=== PATIENT | female | born 2000 | race Caucasian/White ===

== ENCOUNTER 2025-02-05 19:04 | Emergency (ER) | payer OTHER ==
--- OUTSIDE RECORDS SUMMARY | 2025-02-05 19:10 | XMS REPORT | Continuity of Care Document ---
Author Name Unknown Address [address] [facility] [place] [address] [facility] [place] Address [address] [facility] [place] [address] Care Team Providers Care Engagement Manager Name Role Phone Pcp, Patient Does Not Have A Primary Care Physic gordo Doctor Unassigned, [place] Attending Clinician U navailTRELL Plasencia Attending Clinician Unavailable TRELL HAGEN Attending Clinician Unavailable , [facility] Attending Clinician Unavailable Trell Hagen MD Attending Clinician [phone] FERMÍN VELEZ Attending Clinician Unavailable Fermín Velez DNP Attending Clinician [phone] DEISY ALBERT Attending Clinician Unavailable DEISY ALBERT Attending Clinician Unavailable Deisy Albert MD Attending Clinician [phone] RAFAEL FUENTES Attending Clinician UnavailRafael Roman NP Attending Clinician [phone] Jasmyn LIU, Pastora Hollis Attending Clinician Unavaila Andres Chester CRNA Attending Clinician [phone] Yamil Solis MD Attending Clinician [phone] Elizabeth Marrero MD Attending Clinician [phone] Room, [facility] Attending Clinician Unavailable MANASA CARUSO Attending Clinician MANASA Fuller Attending Clinician Ana muñoz 1, [facility] Room Attending Clinician Manasa Paz MD Attending Clinician [phone] CONSUELO BARAHONA Attending Clinician UnavailCONSUELO Guido Attending Clinician UnavailConsuelo Guido DO Attending Clinician [phone] Carissa Daiz DO Attending Clinician [phone] RAFAEL FUENTES Admitting Clinician [place], TRELL CONRAD Admitting Clinician Trell Pisano MD Admitting Clinician [phone] Payers Payer Name Policy Type Policy Number Effective Date Expirati on Date Source [employer] [place] [id number] 2023 00:00:00 Problems Condition Name Condition Details Condition Category Status Onset Date Resolution Date Last Treatment Date Treating Clinician Comments Source Mild pre-eclamp tori in third trimester Mild pre-eclamp tori in third trimester Disease Active 07-03 00:00: 00 [facility] History of pre-eclamp tori History of pre-eclamp tori Disease Active 07-03 00:00: 00 [facility] Gestationa l diabetes mellitus (GDM) in third trimester, gestationa l diabetes method of control unspecifie d Gestationa l diabetes mellitus (GDM) in third trimester, gestationa l diabetes method of control unspecifie d Disease Active 8-14 00:00: 00 [facility] GDM, class A2 GDM, class A2 Disease Active 8-14 00:00: 00 [facility] History of gestationa l diabetes mellitus (GDM) History of gestationa l diabetes mellitus (GDM) Disease Active 8-14 00:00: 00 [facility] Post-op pain Post-op pain Disease Resolve d 2023- 9-04 00:00: 00 2024-07-29 00:00:00 2024-07-29 12:20:31 [facility] Generalize d abdominal pain Generalize d abdominal pain Disease Resolve d 2023-0 9-04 00:00: 00 2024-07-29 00:00:00 2024-07-29 12:20:32 [facility] Hypokalemi a Hypokalemi a Disease Resolve d 2023-0 9-04 00:00: 00 2024-07-29 00:00:00 2024-07-29 12:20:33 [facility] Acute UTI (urinary tract infection) Acute UTI (urinary tract infection) Disease Resolve d 0 9-04 00:00: 00 2024-07-29 00:00:00 2024-07-29 12:32:07 [facility] Other constipati on Other constipati on Disease Resolve d 0 9-04 00:00: 00 2024-07-29 00:00:00 2024-07-29 12:20:34 [facility] Endometrit is Endometrit is Disease Resolve d 9-03 00:00: 00 2024-07-29 00:00:00 2024-07-29 12:32:06 [facility] Liveborn , of colon , born in hospital by delivery Liveborn , of colon , born in hospital by delivery Disease Resolve d 0 9-01 00:00: 00 2024-07-29 00:00:00 2024-07-29 12:20:28 [facility] Positive GBS test Positive GBS test Disease Resolve d 0 8-21 00:00: 00 2024-07-29 00:00:00 2024-07-29 12:20:36 [facility] 39 weeks gestation of 39 weeks gestation of Disease Resolve d 2023-0 7-30 00:00: 00 2024-07-29 00:00:00 2024-07-29 12:20:40 [facility] High-risk in third trimester High-risk in third trimester Disease Resolve d 2023-0 7-30 00:00: 00 2024-07-29 00:00:00 2024-07-29 12:20:38 [facility] Obesity in Obesity in Disease Resolve d 0 7-30 00:00: 00 2024-07-29 00:00:00 2024-07-29 12:20:37 [facility] 34 weeks gestation of 34 weeks gestation of Disease Resolve d 730 00:00: 00 2024-05-31 00:00:00 2024-05-31 15:19:20 [facility] Allergies, Adverse Reactions, Alerts Allergy Name Allergy Type Status Severity Reaction(s) Onset Date Inactive Date Treating Clinician Comments Source NO KNOWN ALLERGIE S Drug Class Active [facility] Social History Social Habit Start Date Stop Date Quantity Comments Source ASSERTION 2023-10-15 00:00:00 [facility] Social function 2024-07-15 00:00:00 2024-07-15 00:00:00 [facility] Alcoholic beverage intake 2024-06-15 00:00:00 2024-06-15 00:00:00 Ex-drinker (finding) [facility] Tobacco use and exposure 2024-05-31 00:00:00 2024-05-31 00:00:00 Smokeless tobacco non-user [facility] Sex assigned at 2000 00:00:00 2000 00:00:00 [facility] Smoking Status Start Date Stop Date Source Tobacco smoking consumption unknown [facility] Never smoked tobacco [facility] Medications Ordered Medication Name Filled Medication Name Start Date Stop Date Current Medication? Ordering Clinician Indication Dosage Frequency Signature (SIG) Comments Components Source cefTRIAXone (ROCEPHIN) 1,000 mg in NaCl 0.9% (NS) 100 mL MINI-BAG 07-06 06:45: 00 07-06 07:33 :00 No 1000mg 1,000 mg, IV Piggyback, ONCE, 1 dose, On Thu07/06/24 at 0145, Administer over 30 Minutes, 100 mL, Reason for Anti-Infec tive: Documented Infection, Documented Infection Site: Urine, Duration of Therapy: Once (ED) [facility] NaCl 0.9% (NS) bolus infusion 1,000 mL 07-06 06:45: 00 07-06 07:05 :00 No 1000mL at 999 mL/hr, 1,000 mL, IV Infusion, ONCE, 1 dose, On Thu07/06/24 at 0145, ROBBIE [facility] iopamidol (ISOVUE 370-500 mL) injection 100 mL 07-06 06:45: 00 07-06 06:45 :00 No [id number] 100mL 100 mL, Intravenou s, ONCE, 1 dose, On Thu07/06/24 at 0145, Routine [facility] KCL (KLOR-CON M20) tablet 40 mEq 07-06 06:00: 00 07-06 06:16 :00 No 40meq 40 mEq, Oral, ONCE, 1 dose, On Thu07/06/24 at 0100, ROBBIE [facility] cefdinir 300 mg capsule 07-06 00:00: 00 07-17 04:59 :00 No [id number] 300mg Take 1 capsule by mouth every 12 (twelve) hours for 10 days. [facility] polyethylen e glycol 3350 (MIRALAX) 17 gram/dose powder 07-06 00:00: 00 07-14 04:59 :00 No [id number] 17g Take 17 g by mouth in the morning for 7 days. [facility] ibuprofen (IBU) tablet 800 mg 07-04 05:00: 00 Yes 800mg 800 mg, Oral, Q8H ABX, First dose on Thu07/04/24 at 0000, Until Discontinu ed, Routine [facility] gentamicin 335.2 mg in NaCl 0.9% (NS) 100 mL IV infusion 07-04 02:00: 00 07-05 13:04 :19 No 335.2mg IV Infusion, Q24H ABX, First dose on Thu07/03/24 at 2100, Until Discontinu ed, Routine [facility] clindamycin in 5 % dextrose (CLEOCIN) 900 mg/50 mL IV piggyback RTU 900 mg 07-04 00:30: 00 07-05 13:04 :19 No 900mg 900 mg, IV Piggyback, Q8H ABX, 9 doses, First dose on Thu07/03/24 at 1930, Last dose on Thu07/06/24 at 1130, Administer over 30 Minutes, 50 mL, Reason for Anti-Infec tive: Empiric Therapy for Suspected Infection, Empiric Therapy Site: Pelvic, Duration of therapy: 72 hours, Restricted use approved by: [employer], juice bar 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 member approving Restricted medication : TRELL HAGEN [facility] ampicillin (POLYCILLIN -N) 2,000 mg in NaCl 0.9% (NS) 100 mL MINI-BAG 07-03 23:45: 00 07-05 13:04 :19 No 2g 2,000 mg (2 g), IV Piggyback, Q6H ABX, First dose on Thu07/03/24 at 1845, Until Discontinu ed, Administer over 30 Minutes, 100 mL, Reason for Anti-Infec tive: Empiric Therapy for Suspected Infection, Empiric Therapy Site: Pelvic, Duration of therapy: 72 hours [facility] docusate (COLACE) capsule 200 mg 07-03 14:00: 00 Yes 200mg 200 mg, Oral, DAILY, First dose on Thu07/03/24 at 0900, Until Discontinu ed, Routine [facility] ferrous sulfate tablet 325 mg 07-03 13:00: 00 Yes 325mg 325 mg, Oral, BID, First dose on Thu07/03/24 at 0800, Until Discontinu ed, Routine [facility] ketorolac (TORADOL) injection 30 mg 07-03 05:00: 00 07-03 23:10 :00 No 30mg 30 mg, Slow IV Push, Q6H ABX, 4 doses, First dose on Thu07/03/24 at 0000, Last dose on Thu07/03/24 at 1800, Routine [facility] acetaminoph en 500 mg tablet 07-03 00:00: 00 Yes [id number] 1000mg Take 2 tablets by mouth every 8 (eight) hours as needed for Pain. [facility] simethicone 80 mg chewable tablet 07-03 00:00: 00 Yes [id number] 160mg Take 2 tablets by mouth in the morning and 2 tablets at noon and 2 tablets in the evening. [facility] vitamin w/FA tablet 07-03 00:00: 00 Yes [id number] 1{tbl} Take 1 tablet by mouth in the morning. [facility] docusate 100 mg capsule 07-03 00:00: 00 Yes [id number] 200mg Take 2 capsules by mouth once daily as needed for Constipati on. [facility] ferrous sulfate 325 mg (65 mg iron) tablet 07-03 00:00: 00 Yes [id number] 325mg Take 1 tablet by mouth in the morning. [facility] ibuprofen 800 mg tablet 07-03 00:00: 00 Yes [id number] 800mg Take 1 tablet by mouth every 8 (eight) hours as needed (pain). Take with food or milk. [facility] oxyCODONE 5 mg immediate release tablet 07-03 00:00: 07-11 04:59 :00 No [id number] 5mg Take 1 tablet by mouth every 6 (six) hours as needed (pain) for up to 7 days. Indication s: acute pain [facility] gabapentin 300 mg capsule 07-03 00:00: 00 07-09 04:59 :00 No [id number] 300mg Take 1 capsule by mouth in the morning and 1 capsule at noon and 1 capsule in the evening. Do all this for 5 days. [facility] gabapentin (NEURONTIN) capsule 300 mg 07-02 19:00: 00 Yes 300mg 300 mg, Oral, TID, First dose on 07/02/24 at 1400, Until Discontinu ed, Routine [facility] simethicone (GAS RELIEF (SIMETHICON E)) chewable tablet 160 mg 07-02 19:00: 00 Yes 160mg 160 mg, Oral, TID, First dose on 07/02/24 at 1400, Until Discontinu ed, Routine [facility] acetaminoph en (TYLENOL) tablet 1,000 mg 07-02 16:30: 00 Yes 1000mg 1,000 mg, Oral, Q8H, First dose on 07/02/24 at 1130, Until Discontinu ed, Routine [facility] rho(D) immune globulin (RHOPHYLAC) injection 300 mcg 07-02 16:24: 14 Yes 300ug [facility] oxyCODONE immediate release tablet 5 mg 07-02 16:24: 10 Yes 5mg 5 mg, Oral, Q6HPRN, Starting on 07/02/24 at 1124, Until Discontinu ed, Routine, Pain (scale 7-10), juice bar team member approving Restricted medication : TRELL HAGEN [facility] diphenhydrA MINE (BENADRYL) injection 25 mg 07-02 16:24: 10 Yes 25mg [facility] diphenhydrA MINE (BENADRYL) tablet 25 mg 07-02 16:24: 10 Yes 25mg [facility] ondansetron (ZOFRAN (PF)) injection 4 mg 07-02 16:24: 10 Yes 4mg [facility] bisacodyL (DULCOLAX) suppository 10 mg 07-02 16:24: 10 Yes 10mg [facility] magnesium hydroxide (MILK OF MAGNESIA) 400 mg/5 mL suspension 30 mL 07-02 16:24: 10 Yes 30mL [facility] lactated ringers IV infusion 1,000 mL 07-02 16:24: 10 Yes 1000mL [facility] mupirocin (BACTROBAN OINT) 2 % oinintment 07-02 16:00: 00 Yes Intra-op [facility] sodium chloride 0.9 % irrigation solution 07-02 15:50: 00 Yes PRN, Starting on 07/02/24 at 1050, Until Discontinu ed, Intra-op [facility] lactated ringers IV infusion 1,000 mL 07-02 15:15: 00 07-02 16:25 :01 No 1000mL at 125 mL/hr, 1,000 mL, IV Infusion, CONTINUOUS , Starting on Thu07/02/24 at 1015, Until 07/02/24 at 1125, ROBBIE [facility] oxytocin (PITOCIN) 30 units in NS 500 mL IV infusion 07-02 15:06: 20 07-02 16:25 :01 No 300mL/h 300 mL/hr, IV Infusion, SEE-INSTRU CTIONS, Starting on Thu07/02/24 at 1006, Start at 300 mL/hr for 1 hr then 150 mL/hr for 1 hr. For post delivery uterotonic . [facility] lidocaine-e pinephrine (XYLOCAINE W/EPINEPHRI NE) 1.5 %-1:200,000 injection 07-02 03:16: 00 Yes Epidural, ONCE INTRA PROCEDURE, Starting on Thu07/01/24 at 2216, Until Discontinu ed, Routine, Intra-op [facility] penicillin GK 3 million units in NS 50 mL IV infusion (CNR) 07-01 21:00: 00 07-02 16:24 :27 No 310 3,000,000 Units (3 Million Units), IV Piggyback, Q4H ABX, First dose (after last reorder) on Thu07/01/24 at 1615, Until Discontinu ed, Administer over 60 Minutes, 50 mL, Reason for Anti-Infec tive: Documented Infection, Documented Infection Site: Pelvic, Duration of Therapy: Other (see Comments) [facility] famotidine (PEPCID (PF)) injection 20 mg 07-01 13:00: 00 07-02 16:24 :27 No 20mg 20 mg, Slow IV Push, Q12H, First dose on Thu07/01/24 at 0800, Until Discontinu ed, Routine [facility] oxytocin (PITOCIN) 30 units in NS 500 mL IV infusion 07-01 09:29: 05 07-02 16:24 :27 No 2mU/min at 2-40 mL/hr, IV Infusion, TITRATE, Starting on Thu07/01/24 at 0429, Until 07/02/24 at 1124, Routine [facility] fentaNYL-ro pivacaine 2 mcg/mL-0.1 % (PF) in NS 200 mL epidural infusion RTU 07-01 05:50: 00 Yes Intra-op [facility] miSOPROStol (CYTOTEC) quarter-tab let 25 mcg 06-30 19:00: 00 07-02 16:24 :58 No 25ug 25 mcg, Oral, Q2H, First dose on Anahy 06/30/24 at 1400, Until Discontinu ed, Routine [facility] lactated ringers IV infusion 500 mL 06-30 17:30: 00 07-01 05:05 :00 No 500mL at 999 mL/hr, 500 mL, IV Infusion, ONCE, 1 dose, On Anahy 06/30/24 at 1230, Routine [facility] FENTanyl (PF) (SUBLIMAZE) injection 100 mcg 06-30 17:20: 10 07-02 16:24 :27 No 100ug 100 mcg, Slow IV Push, Q1HPRN, Starting on Anahy 06/30/24 at 1220, Until 07/02/24 at 1124, Routine, contractio n pain without an epidural and SVE < 8 cm and Cat I strip [facility] insulin regular human (HUMULIN R) injection 06-30 17:19: 36 07-02 16:24 :58 No Subcutaneo us, SEE-INSTRU CTIONS, Starting on Thu06/30/24 at 1219, Until 07/02/24 at 1124, Routine [facility] D5W-LR IV infusion 1,000 mL 06-30 17:19: 36 07-02 16:24 :58 No 1000mL at 1-125 mL/hr, IV Infusion, TITRATE, Starting on Anahy 06/30/24 at 1219, Until 07/02/24 at 1124, Routine [facility] ferrous sulfate (IRON, FERROUS SULFATE,) 325 mg (65 mg iron) tablet 06-22 00:00: 00 07-03 00:00 :00 No [id number] 325mg Take 1 tablet by mouth in the morning and 1 tablet in the evening. [facility] metFORMIN 500 mg tablet 06-22 00:00: 00 06-30 04:59 :00 No [id number] 500mg Take 1 tablet by mouth in the morning and 1 tablet in the evening. Take with meals. Do all this for 7 days. [facility] Lancets Misc 06-15 00:00: 00 07-03 00:00 :00 No [id number] Check blood sugar 4 times a day [facility] Alcohol Swabs (ALCOHOL PADS) PadM 06-15 00:00: 00 07-03 00:00 :00 No [id number] Apply to area(s) 4 (four) times daily. [facility] Blood-Gluco se Meter Kit 06-15 00:00: 00 07-03 00:00 :00 No [id number] Use as directed [facility] blood sugar diagnostic (BLOOD GLUCOSE TEST) strip 06-15 00:00: 00 07-03 00:00 :00 No [id number] Check blood sugar 4 times a day [facility] acetaminoph en (TYLENOL) tablet 975 mg 06-08 12:45: 00 06-08 11:38 :00 No 975mg 975 mg, Oral, ONCE NOW, 1 dose, On Thu06/08/24 at 0745, ROBBIE [facility] dextrometho rphan-guaif enesin (ROBITUSSIN DM) 10-100 mg/5 mL solution 10 mL 06-08 12:45: 00 06-08 11:39 :00 No 10mL 10 mL, Oral, ONCE NOW, 1 dose, On Thu06/08/24 at 0745, Routine [facility] NaCl 0.9% (NS) bolus infusion 1,000 mL 06-08 12:30: 00 06-08 13:02 :00 No 1000mL at 999 mL/hr, 1,000 mL, IV Piggyback, ONCE, 1 dose, On Thu06/08/24 at 0730, STAT [facility] PNV 11-Iron Fum-Folic Acid-OM3 28 mg iron-1 mg -200 mg Cap 05-31 14:53: 28 07-03 00:00 :00 No Take by mouth. [facility] Vital Signs Vital Name Observation Time Observation Value Comments S ource Systolic blood pressure 2024-07-29 17:23:00 119 mm[Hg] [facility] Diastolic blood pressure 2024-07-29 17:23:00 69 mm[Hg] [facility] Heart rate 2024-07-29 17:23:00 59 /min Un[facility] Body temperature 2024-07-29 17:23:00 36.89 Stacie [facility] Respiratory rate 2024-07-29 17:23:00 16 /min [facility] Body weight 2024-07-29 17:23:00 81.92 kg [facility] BMI 2024-07-29 17:23:00 34.12 kg/m2 [facility] Systolic blood pressure 2024-07-19 21:10:00 122 mm[Hg] [facility] Diastolic blood pressure 2024-07-19 21:10:00 73 mm[Hg] [facility] Heart rate 2024-07-19 21:10:00 52 /min Unive [facility] Body temperature 2024-07-19 21:10:00 36.61 Stacie [facility] Body weight 2024-07-19 21:10:00 81.194 kg [facility] BMI 2024-07-19 21:10:00 33.82 kg/m2 [facility] Systolic blood pressure 2024-07-15 15:58:00 123 mm[Hg] [facility] Diastolic blood pressure 2024-07-15 15:58:00 80 mm[Hg] [facility] Heart rate 2024-07-15 15:58:00 60 /min Un[facility] Body temperature 2024-07-15 15:58:00 36.56 Stacie [facility] Respiratory rate 2024-07-15 15:58:00 18 /min [facility] Body height 2024-07-15 15:58:00 154.9 cm [facility] Body weight 2024-07-15 15:58:00 81.647 kg [facility] BMI 2024-07-15 15:58:00 34.01 kg/m2 [facility] Oxygen saturation in Arterial blood by Pulse oximetry 2024-07-15 15:58:00 100 /min [facility] Systolic blood pressure 2024-07-11 20:58:00 126 mm[Hg] [facility] Diastolic blood pressure 2024-07-11 20:58:00 85 mm[Hg] [facility] Heart rate 2024-07-11 20:58:00 82 /[facility] Body temperature 2024-07-11 20:58:00 36.44 Stacie [facility] Body height 2024-07-11 20:58:00 154.9 cm [facility] Body weight 2024-07-11 20:58:00 82.645 kg [facility] BMI 2024-07-11 20:58:00 34.43 kg/m2 [facility] Systolic blood pressure 2024-07-10 12:50:02 109 mm[Hg] [facility] Diastolic blood pressure 2024-07-10 12:50:02 72 mm[Hg] [facility] Heart rate 2024-07-10 12:50:02 74 /min [facility] Respiratory rate 2024-07-10 12:50:02 16 /min [facility] Oxygen saturation in Arterial blood by Pulse oximetry 2024-07-10 12:50:02 97 /min [facility] Body temperature 2024-07-10 12:27:00 37 Stacie [facility] Body height 2024-07-10 12:27:00 154.9 cm [facility] Body weight 2024-07-10 12:27:00 85.004 kg [facility] BMI 2024-07-10 12:27:00 35.41 kg/m2 [facility] Systolic blood pressure 2024-07-06 07:00:00 130 mm[Hg] [facility] Diastolic blood pressure 2024-07-06 07:00:00 81 mm[Hg] [facility] Heart rate 2024-07-06 07:00:00 80 /min Un[facility] Body temperature 2024-07-06 07:00:00 36.56 Stacie [facility] Respiratory rate 2024-07-06 07:00:00 18 /min [facility] Oxygen saturation in Arterial blood by Pulse oximetry 2024-07-06 07:00:00 97 /min [facility] Body height 2024-07-06 04:45:00 154.9 cm [facility] Body weight 2024-07-06 04:45:00 88.451 kg [facility] BMI 2024-07-06 04:45:00 36.84 kg/m2 [facility] Body temperature 2024-07-05 18:00:00 36.94 Stacie [facility] Systolic blood pressure 2024-07-05 13:13:00 127 mm[Hg] [facility] Diastolic blood pressure 2024-07-05 13:13:00 72 mm[Hg] [facility] Heart rate 2024-07-05 13:13:00 78 /min [facility] Respiratory rate 2024-07-05 13:13:00 18 /min [facility] Oxygen saturation in Arterial blood by Pulse oximetry 2024-07-05 13:13:00 99 /min [facility] Body height 2024-06-30 17:15:00 154.9 cm [facility] Body weight 2024-06-30 17:15:00 94.802 kg [facility] BMI 2024-06-30 17:15:00 39.49 kg/m2 [facility] Systolic blood pressure 2024-07-02 19:45:00 95 mm[Hg] [facility] Diastolic blood pressure 2024-07-02 19:45:00 50 mm[Hg] [facility] Heart rate 2024-07-02 19:45:00 102 /min [facility] Oxygen saturation in Arterial blood by Pulse oximetry 2024-07-02 19:45:00 99 /min [facility] Body temperature 2024-07-02 18:00:00 37.06 Stacie [facility] Respiratory rate 2024-07-02 18:00:00 18 /min [facility] Body height 2024-06-30 17:15:00 154.9 cm [facility] [place] [place] Body weight 2024-06-30 17:15:00 94.802 kg [facility] BMI 2024-06-30 17:15:00 39.49 kg/m2 [facility] Systolic blood pressure 2024-06-29 14:32:00 136 mm[Hg] [facility] Diastolic blood pressure 2024-06-29 14:32:00 84 mm[Hg] [facility] Heart rate 2024-06-29 14:32:00 70 /min [facility] [place] [place] Body height 2024-06-29 14:32:00 154.9 cm [facility] Body weight 2024-06-29 14:32:00 95.165 kg [facility] BMI 2024-06-29 14:32:00 39.64 kg/m2 [facility] Systolic blood pressure 2024-06-27 13:54:00 130 mm[Hg] [facility] Diastolic blood pressure 2024-06-27 13:54:00 83 mm[Hg] [facility] Heart rate 2024-06-27 13:54:00 68 /min Unive [facility] Body temperature 2024-06-27 13:54:00 36.39 Stacie [facility] Body height 2024-06-27 13:54:00 154.9 cm [facility] [place] [place] Body weight 2024-06-27 13:54:00 95.074 kg [facility] BMI 2024-06-27 13:54:00 39.60 kg/m2 [facility] Systolic blood pressure 2024-06-23 14:06:00 124 mm[Hg] [facility] Diastolic blood pressure 2024-06-23 14:06:00 79 mm[Hg] [facility] Heart rate 2024-06-23 14:06:00 83 /min [facility] rate 2024-06-23 14:06:00 18 /min [facility] Body height 2024-06-23 14:06:00 154.9 cm [facility] Body weight 2024-06-23 14:06:00 93.895 kg [facility] BMI 2024-06-23 14:06:00 39.11 kg/m2 [facility] Systolic blood pressure 2024-06-22 15:57:00 139 mm[Hg] [facility] Diastolic blood pressure 2024-06-22 15:57:00 82 mm[Hg] [facility] Heart rate 2024-06-22 15:57:00 89 /min [facility] Body temperature 2024-06-22 15:57:00 36.28 Stacie [facility] Body weight 2024-06-22 15:57:00 93.713 kg [facility] BMI 2024-06-22 15:57:00 39.04 kg/m2 [facility] Systolic blood pressure 2024-06-15 15:52:00 125 mm[Hg] [facility] Diastolic blood pressure 2024-06-15 15:52:00 81 mm[Hg] [facility] Heart rate 2024-06-15 15:52:00 73 /min Unive [facility] Body height 2024-06-15 15:52:00 154.9 cm [facility] Body weight 2024-06-15 15:52:00 94.439 kg [facility] BMI 2024-06-15 15:52:00 39.34 kg/m2 [facility] Systolic blood pressure 2024-06-08 13:00:00 123 mm[Hg] [facility] Diastolic blood pressure 2024-06-08 13:00:00 68 mm[Hg] [facility] Heart rate 2024-06-08 13:00:00 116 /min Unive [facility] Respiratory rate 2024-06-08 13:00:00 29 /min [facility] Oxygen saturation in Arterial blood by Pulse oximetry 2024-06-08 13:00:00 96 /min [facility] Body temperature 2024-06-08 12:17:00 37.28 Stacie [facility] Body height 2024-06-08 11:22:00 154.9 cm [facility] Body weight 2024-06-08 11:22:00 94.53 kg [facility] BMI 2024-06-08 11:22:00 39.38 kg/m2 [facility] Systolic blood pressure 2024-05-31 19:59:00 131 mm[Hg] [facility] Diastolic blood pressure 2024-05-31 19:59:00 66 mm[Hg] [facility] Heart rate 2024-05-31 19:59:00 88 /min Unive [facility] Body temperature 2024-05-31 19:59:00 36.94 Stacie [facility] Body height 2024-05-31 19:59:00 154.9 cm [facility] Body weight 2024-05-31 19:59:00 93.169 kg [facility] BMI 2024-05-31 19:59:00 38.81 kg/m2 [facility] Systolic blood pressure 2023-11-16 03:42:00 135 mm[Hg] [facility] Diastolic blood pressure 2023-11-16 03:42:00 80 mm[Hg] [facility] Heart rate 2023-11-16 03:42:00 80 /min Unive [facility] Body temperature 2023-11-16 03:42:00 36.5 Stacie [facility] Respiratory rate 2023-11-16 03:42:00 18 /min [facility] Body height 2023-11-16 03:42:00 154.9 cm [facility] Body weight 2023-11-16 03:42:00 77.111 kg [facility] BMI 2023-11-16 03:42:00 32.12 kg/m2 [facility] Oxygen saturation in Arterial blood by Pulse oximetry 2023-11-16 03:42:00 100 /min [facility] Procedures Procedure Date / Time Performed Performing Clinician Source GLUCOSE FASTING 2024-08-01 14:25:00 Trell Hagen [facility] WOUND/ASPIRATE OR ABSCESS CULTURE 2024-07-11 21:13:00 Trell Hagen [facility] WOUND CULTURE 2024-07-11 21:13:00 Trell Hagen [facility] URINALYSIS 2024-07-06 05:54:00 Rafael Fuentes [facility] CT ABDOMEN PELVIS W CONTRAST 2024-07-06 05:45:40 Rafael Fuentes [facility] LIPASE 2024-07-06 05:05:00 Rafael Fuentes [facility] COMP. METABOLIC PANEL (96247) 2024-07-06 05:05:00 Rafael Fuentes [facility] CBC WITH DIFF 2024-07-06 05:05:00 Rafael Fuentes [facility] CBC WITH DIFF 2024-07-03 08:37:00 Trell Hagen [facility] VENOUS CORD GAS 2024-07-02 15:49:[facility] 2024-07-02 15:49:00 Trell Hagen [facility] SECTION 2024-07-02 14:40:00 Trell Hagen [facility] SECTION 2024-07-02 14:40:00 Xiao [facility] POCT GLUCOSE (AUTOMATED) 2024-07-02 [facility]:07[facility] 2024-07-02 14:07[facility] SGOT (ASPARTATE AMINO TRANSFER) 2024-07-02 13:40:00 Hagen, Trell [facility] CREATININE 2024-07-02 13:40:00 Trell Hagen [facility] ALANINE AMINO TRANSFERASE(SGPT 2024-07-02 13:40:00 Trell Hagen [facility] LACTATE DEHYDROGENASE 2024-07-02 13:40:00 Trell Hagen [facility] URIC ACID 2024-07-02 13:40:00 Trell Hagen [facility] CBC WITH DIFF 2024-07-02 13:40:00 Trell Hagen [facility] URINALYSIS 2024-07-02 13:40:00 Trell Hagen [facility] HB ABO GROUPING 2024-07-02 13:40:00 Xiao [facility] RHO (D) IMMUNE GLOBULIN 2024-07-02 13:40:00 Xiao [facility] PROTEIN CREAT RATIO URINE RANDOM 2024-07-02 13:40:00 [facility] (ASPARTATE AMINO TRANSFER) 2024-07-02 13:40:00 Trell Hagen [facility] CREATININE 2024-07-02 13:40:00 Trell Hagen [facility] ALANINE AMINO TRANSFERASE(SGPT 2024-07-02 13:40:00 [facility] LACTATE DEHYDROGENASE 2024-07-02 13:40:00 Trell Hagen verna [facility] URIC ACID 2024-07-02 13:40:00 Trell Hagen [facility] CBC WITH DIFF 2024-07-02 13:40:00 Trell Hagen [facility] URINALYSIS 2024-07-02 13:40:00 Trell Hagen [facility] HB ABO GROUPING 2024-07-02 13:40:00 Xiao [facility] RHO (D) IMMUNE GLOBULIN 2024-07-02 13:40:00 Xiao [facility] PROTEIN CREAT RATIO URINE RANDOM 2024-07-02 13:40:00 Xiao [facility] POCT GLUCOSE (AUTOMATED) 2024-07-02 09:01:00 Hagen, [facility] POCT GLUCOSE (AUTOMATED) 2024-07-02 09:01:00 Hagen, [facility] POCT GLUCOSE (AUTOMATED) 2024-07-02 05:15:00 Hagen [facility] POCT GLUCOSE (AUTOMATED) 2024-07-02 05:15:00 [facility] CENTRAL NEURAXIAL BLOCK 2024-07-02 03:00:00 Samy Marrero [facility] POCT GLUCOSE (AUTOMATED) 2024-07-02 01:01:00 Hagen, [facility] POCT GLUCOSE (AUTOMATED) 2024-07-02 01:01:00 Hagen [facility] POCT GLUCOSE (AUTOMATED) 2024-07-01 20:45:00 [facility] POCT GLUCOSE (AUTOMATED) 2024-07-01 20:45:00 Hagen, [facility] POCT GLUCOSE (AUTOMATED) 2024-07-01 16:58:00 [facility], [facility] POCT GLUCOSE (AUTOMATED) 2024-07-01 16:58:00 [facility], [facility] POCT GLUCOSE (AUTOMATED) 2024-07-01 12:54:00 [facility] POCT GLUCOSE (AUTOMATED) 2024-07-01 12:54:00 [facility] POCT GLUCOSE (AUTOMATED) 2024-07-01 08:58:00 [facility] POCT GLUCOSE (AUTOMATED) 2024-07-01 08:58:00 [facility] CENTRAL NEURAXIAL BLOCK 2024-07-01 05:18:00 Merna Solis [facility] POCT GLUCOSE (AUTOMATED) 2024-07-01 05:02:00 Hagen, [facility] POCT GLUCOSE (AUTOMATED) 2024-07-01 05:02:00 [facility] POCT GLUCOSE (AUTOMATED) 2024-07-01 02:32:00 Trell Hagen [facility] POCT GLUCOSE (AUTOMATED) 2024-07-01 02:32:00 Trell Hagen [facility] POCT GLUCOSE (AUTOMATED) 2024-06-30 23:11:00 Trell Hagen [facility] POCT GLUCOSE (AUTOMATED) 2024-06-30 23:11:00 Trell Hagen [facility] ABORH CONFIRMATION (LAB ONLY) 2024-06-30 19:19:00 [facility]H [facility]FIRMATION (LAB ONLY) 2024-06-30 19:19:00 [facility]UCOSE (AUTOMATED) 2024-06-30 18:58:00 [facility]SE (AUTOMATED) 2024-06-30 18:58:00 HagenTrell [facility] CBC WITH DIFF 2024-06-30 17:22:00 Hagen [facility] HEPATITIS B SURFACE ANTIGEN 2024-06-30 17:22:00 [facility] 2024-06-30 17:22:00 Xiao Trell [facility] ADC OR AIMEE ONLY - RPR 2024-06-30 17:22:00 HagenTrell [facility] HIV 1/2 AG-AB WITH REFLEX 2024-06-30 17:22:00 HagenTrell [facility] CBC WITH DIFF 2024-06-30 17:22:00 HagenTrell [facility] HEPATITIS B SURFACE ANTIGEN 2024-06-30 17:22:00 [facility] 2024-06-30 17:22:00 HagenTrell [facility] ADC OR AIMEE ONLY - RPR 2024-06-30 17:22:00 Hagen [facility] HIV 1/2 AG-AB WITH REFLEX 2024-06-30 17:22:00 Xiao Trell [facility] NON-STRESS TEST 2024-06-29 15:17:18 Trell Hagen m [facility] NON-STRESS TEST 2024-06-27 19:48:54 Trell Hagen [facility] NON-STRESS TEST 2024-06-23 23:35:58 Xiao Trell gillespie [facility] SECOND AND THIRD TRIMESTER ULTRASOUND 2024-06-23 20:56:00 Trell Hagen [facility] POCT URINALYSIS W/O SPECIFIC GRAVITY 2024-06-22 00:00:00 Trell Hagen [facility] DSU PRE-OP 2024-06-15 20:59:57 Doctor Unass igned, [place] [facility] >14 WEEKS US LIMITED 2024-06-15 17:47:58 Trell Hagen [facility] POCT URINALYSIS W/O SPECIFIC GRAVITY 2024-06-15 00:00:00 Trell Hagen [facility] COMP. METABOLIC PANEL ([id number]) 2024-06-08 11:34:00 Fifi Llanos [facility] CBC WITH DIFF 2024-06-08 11:34:00 Fifi Llanos [facility] URINALYSIS 2024-06-08 11:34:00 Fifi Llanos [facility] RAPID STREP SCREEN FOR GROUP A 2024-06-08 11:34:00 Fifi Llanos [facility] INFLUENZA A/B RSV COVID NAAT 2024-06-08 11:34:00 Fifi Llanos [facility] ASSIGNMENT OF BENEFITS 2023-11-16 03:50:00 Docto r Unassigned, [place] [facility] Encounters Start Date/Time End Date/Time Encounter Type Admission Type Attending Clinicians Care Facility Care Department Encounter ID Source 2024-06-15 00:00:00 2024-12-17 07:07:19 Orders Only Doctor Unassigned, [place] Doctor Unassigned, [place] [facility] 1.2.840.114 350.1.13.10 4.2.7.2.686 [id number] [facility] 2024-11-08 13:45:00 2024-11-08 13:45:00 Outpatient R XIAO TRELL CHRISTOPHER [facility] [id number] [facility] 2024-08-02 00:00:00 2024-09-03 18:22:16 Patient Secure Msg Doctor Unassigned, [place] Doctor Unassigned, [place] [facility] 1.2.840.114 350.1.13.10 4.2.7.2.686 [id number] [facility] 2024-07-06 00:00:00 2024-08-06 18:18:34 Patient Secure Msg Doctor Unassigned, [place] Doctor Unassigned, [place] [facility] 1.2.840.114 350.1.13.10 4.2.7.2.686 [id number] [facility] 2024-08-01 09:30:00 2024-08-01 09:45:00 Lead Caregiver Visit 2, Adc Lab Trell Hagen 2, Adc Lab [facility] 1.2.840.114 350.1.13.10 4.2.7.2.686 [id number] [facility] 2024-08-01 09:30:00 2024-08-01 09:30:00 Outpatient R TRELL HAGEN VIEN [facility] [id number] [facility] 2024-07-29 12:15:00 2024-07-29 12:33:24 Outpatient R TRELL HAGEN VIEN [facility] [id number] [facility] 2024-07-29 12:15:00 2024-07-29 12:33:24 Routine Visit Trell Hagen [facility] 1.2.840.114 350.1.13.10 4.2.7.2.686 [id number] [facility] 2024-06-22 00:00:00 2024-07-23 18:17:08 Patient Secure Msg Doctor Unassigned, [place] Doctor Unassigned, [place] [facility] 1.2.840.114 350.1.13.10 4.2.7.2.686 [id number] [facility] 2024-07-19 16:15:00 2024-07-19 16:19:24 Outpatient R FERMÍN VELEZ [facility] [id number] [facility] 2024-07-19 16:15:00 2024-07-19 16:19:24 Routine Visit Fermín Velez [facility] 1.2.840.114 350.1.13.10 4.2.7.2.686 [id number] 134 [id number] [facility] 2024-07-15 00:00:00 2024-07-15 13:24:39 Patient Secure Msg Trell Hagen [facility] 1.2.840.114 350.1.13.10 4.2.7.2.686 [id number] 134 [id number] [facility] 2024-07-15 10:30:00 2024-07-15 11:13:36 Outpatient R TRELL HAGEN VIEN [facility] [id number] [facility] 2024-07-15 10:30:00 2024-07-15 11:13:36 Office Visit Trell Hagen [facility] 1.2.840.114 350.1.13.10 4.2.7.2.686 [id number] [facility] 2024-07-11 15:30:00 2024-07-11 16:30:44 Outpatient R TRELL HAGEN VIEN [facility] [id number] [facility] 2024-07-11 15:30:00 2024-07-11 16:30:44 Routine Visit Hagen, Trell Cam [facility] PROFESSIO [facility] 1.2840.114 350.1.13.10 4.2.7.2.686 [id number] [facility] 2024-07-10 07:28:00 2024-07-10 08:04:00 Emergency X DEISY ALBERT JULIO [facility] ERT [id number] [facility] 2024-07-10 07:28:00 2024-07-10 08:04:00 Emergency Deisy Albert [facility] 1.2.840.114 350.1.13.10 4.2.7.2.686 [id number] [facility] 2024-07-05 23:42:00 2024-07-06 02:35:00 Emergency X ADEMERRILLALEXANDERGABYFRANKIENETO [facility] ERT [id number] [facility] 2024-07-05 23:42:00 2024-07-06 02:35:00 Emergency AderiGaby quintanabril [facility] 1.2840.114 350.1.13.10 4.2.7.2.686 [id number] [facility] 2024-07-05 00:00:00 2024-07-05 22:21:43 Nurse Triage Pastora Vines Maegan D [facility] 1.2840.114 350.1.13.10 4.2.7.2.686 [id number] [facility] 2024-06-30 12:08:00 2024-07-05 14:43:00 Inpatient P TRELL HAGEN VIEN VTTATA GARETH [id number] [facility] 2024-06-30 12:08:00 2024-07-05 14:43:00 Hospital Encounter Trell Hagen [facility] 1.2840.114 350.1.13.10 4.2.7.2.686 [id number] [facility] 2024-07-02 13:10:00 2024-07-02 14:51:00 Surgery Trell Hagen [facility] 1.2840.114 350.1.13.10 4.2.7.2.686 [id number] [facility] 2024-07-01 20:01:42 2024-07-01 20:01:42 Anesthesia Event Andres Gauthier [facility] 1.2840.114 350.1.13.10 4.2.7.2.686 [id number] [facility] 2024-07-01 00:10:00 2024-07-01 00:10:00 Anesthesia Event Yamil Solis Stacey [facility] 1..114 350.1.13.10 4.2.7.2.686 [id number] [facility] 2024-06-29 09:15:00 2024-06-29 10:31:06 Outpatient R TRELL HAGEN VIEN [facility] [id number] [facility] 2024-06-29 09:15:00 2024-06-29 10:31:06 Routine Visit [facility] 1.840.114 350.1.13.10 4.2.7.2.686 [id number] [facility] 2024-06-27 09:00:00 2024-06-27 09:35:30 Outpatient R TRELL HAGEN VIEN [facility] [id number] [facility] 2024-06-27 09:00:00 2024-06-27 09:35:30 [facility] PROFESSIO NAL [facility]ILD[facility] 1..840.114 350.1.13.10 4.2.7.2.686 [id number] [facility] 2024-06-23 15:15:00 2024-06-23 16:09:50 Outpatient P JOHNSON-KATHARINE S, MANASA JOHNSON-KATHARINE S, MANASA [facility] [id number] [facility] 2024-06-23 15:15:00 2024-06-23 16:09:50 Lead Caregiver Visit 1, [facility] Room Johnson-Katharine s, Manasa 1, [facility] Room [facility] 1.2840.114 350.1.13.10 4.2.7.2.686 [id number] [facility] 2024-06-23 09:00:00 2024-06-23 09:33:33 Routine Visit Room, [facility] Johnson-Katharine s, Manasa Trell Hagen Room, [facility] BU[facility] 1.2.840.114 350.1.13.10 4.2.7.2.686 [id number] [facility] 2024-06-22 00:00:00 2024-06-22 12:53:53 Case Management [facility] 1.2.840.114 350.1.13.10 4.2.7.2.686 [id number] [facility] 2024-06-22 10:45:00 2024-06-22 11:09:01 Outpatient R TRELL HAGEN VIEN [facility] [id number] [facility] 2024-06-22 10:45:00 2024-06-22 11:09:01 Routine Visit Trell Hagen [facility] 1.2.840.114 350.1.13.10 4.2.7.2.686 [id number] [facility] 2024-06-22 09:15:00 2024-06-22 09:30:00 Lead Caregiver Visit 2, Adc Lab Trell Hagen 2, Adc Lab [facility] 1.2.840.114 350.1.13.10 4.2.7.2.686 [id number] [facility] 2024-06-17 00:00:00 2024-06-17 10:15:10 Telephone Trell Hagen [facility] 1.2.840.114 350.1.13.10 4.2.7.2.686 [id number] [facility] 2024-06-15 10:45:00 2024-06-15 11:55:37 Outpatient R TRELL H[facility]EN [facility] [id number] [facility] 2024-06-15 10:45:00 2024-06-15 11:55:37 Routine Visit Trell Hagen [facility] 1.2.840.114 350.1.13.10 4.2.7.2.686 [id number] [facility] 2024-06-10 00:00:00 2024-06-10 15:35:08 Telephone Trell Hagen [facility] 1.2.840.114 350.1.13.10 4.2.7.2.686 [id number] [facility] 2024-06-08 00:00:00 2024-06-10 09:16:09 Telephone Trell Hagen [facility] 1.2.840.114 350.1.13.10 4.2.7.2.686 [id number] [facility] 2024-06-08 06:24:00 2024-06-08 08:02:00 Emergency X CONSUELO BARAHONA SANDRA [facility] ERT [id number] [facility] 2024-06-08 06:24:00 2024-06-08 08:02:00 Emergency Consuelo Barahona Kiet [facility] 1.2.840.114 350.1.13.10 4.2.7.2.686 [id number] [facility] 2024-06-02 00:00:00 2024-06-03 09:29:54 Telephone HagenTrell [facility] PROFESSIO NAL BUILDING 1.2.840.114 350.1.13.10 4.2.7.2.686 [id number] [facility] 2024-05-31 14:45:00 2024-05-31 15:17:29 Initial Visit Trell Hagen Darren [facility] PROFESSIO NAL BUILD[facility] 1.2.840.114 350.1.13.10 4.2.7.2.686 [id number] [facility] 2024-05-31 14:45:00 2024-05-31 15:17:29 Outpatient R HAGENBOBKATYA HAGEN TRELL [facility] [id number] [facility] 2024-05-18 09:26:52 2024-05-18 09:26:52 Outpatient SFA SFA [id number] Mario Lozano Shay 2024-05-17 14:26:18 2024-05-17 14:26:18 Outpatient SFA SFA [id number] Mario Lozano Shay 2024-04-22 14:48:53 2024-04-22 14:48:53 Outpatient SFA SFA [id number] Mario Lozano hSay 2024-03-03 14:07:23 2024-03-03 14:07:23 Outpatient SFA SFA [id number] Mario Lozano Shay 2024-02-18 14:32:03 2024-02-18 14:32:03 Outpatient SFA SFA [id number] Mario Lozano Shay 2024-01-19 08:08:12 2024-01-19 08:08:12 Outpatient [facility] [id number] Mario Vidal 2024-01-18 13:30:33 2024-01-18 13:30:33 Outpatient [facility] [id number] Mario Vidal 2024-01-07 14:12:27 2024-01-07 14:12:27 Outpatient [facility] [id number] Mario Vidal 2023-12-21 16:30:41 2023-12-21 16:30:41 Outpatient [facility] [id number] Mario Vidal 2023-11-15 21:44:00 2023-11-15 22:03:00 Emergency Carissa Diaz [facility] 1.2.840.114 350.1.13.10 4.2.7.2.686 [id number] [facility] 2023-11-15 21:44:00 2023-11-15 22:03:00 Emergency X CARISSA DIAZ [facility] ERT [id number] [facility] Results Test Description Test Time Test Comments Results Result Co mments Source [facility] W [id number] 06:06:29ORDERING PHYSICIAN: RAFAEL FUENTES ABDOMEN AND PELVIS CT WITH CONTRAST. DATE: ?07/06/2024 1:03 AM CLINICAL INDICATIONS: ?Postoperative abdominal pain TECHNIQUE: ?Axial computed tomographic images ofthe abdomen and pelviswere obtained after administration of 100 mL of Omnipaque 350intravenously. CT scan was performed according to ALARA (As Low asReasonably Achievable). COMPARISON: ?None. Abdomenfindings: Evaluation lung bases demonstrate tiny bilateral pleuraleffusions. The cardiac apex is unremarkable. Slight hepatomegaly is present. A gallstone is identified in thegallbladder neck. The pancreas, adrenal glands and kidneys have anunremarkable contrast enhanced appearance. Patchy linear hypoenhancement inthe periphery of the spleen is identified which is suspected to result froma splenic infarct. The stomach, small bowel and colon demonstrate no evidence for obstructionor inflammation. A normal appendix is present in the right lower quadrant.Stool is present throughout the colon sugg esting constipation. No adenopathy or free fluid are identified in the abdomen. No acute osseousabnormality is demonstrated. Pelvis findings: The small bowel and colon are normal caliber. The urinarybladder demonstrates no abnormality. The uterus is enlarged andheterogeneous. A small amount of gas and debris is identified within theendometrial canal. The findings are compatible with a recent postpartumstate. No adenopathy or free fluid are identified in the pelvis. No acuteosseous abnormality is demonstrated.[facility]. METABOLIC PANEL ([id number])2024-07-06 05:52:29* Test Item Value Reference Range Interpretation Comme nts NA (test code = 0224710250) 135 mmol/L 135-145 K (test code = 3613802929) 3.0 mmol/L 3.5-5.0 L CL (test code = 9573860230) 105 mmol/L 98-108 CO2 TOTAL (test code = 1604649953) 19 mmol/L 23-31 L AGAP (test code = 7268277763) 11 2-16 BUN (test code = 4990670759) 6 mg/dL 7-23 L GLUCOSE (test code = 9713761964) 119 mg/dL 70-110 H CREATININE (test code = 2160-0) 0.64 mg/dL 0.50-1.04 TOTAL BILI (test code = 3173928125) 0.5 mg/dL 0.1-1.1 CALCIUM (test code = 3982180456) 7.9 mg/dL 8.6-10.6 L T PROTEIN (test code = 3191718302) 5.8 g/dL 6.3-8.2 L ALBUMIN (test code = 3423318272) 2.8 g/dL 3.5-5.0 L ALK PHOS (test code = 1113864308) 201 U/L 34-122 H ALTv (test code = 1742-6) 24 U/L 5-35 AST(SGOT) (test code = 7228651347) 36 U/L 13-40 eGFR (test code = 53619-7) 126.7 mL/min/1.73m2 CKD-EPI eGFR (2020). Assuming creatinine has been stable day-to-day for at least three months, the eGFR indicates Category G1 (>= 90 mL/min/1.73 m2) Lab Interpretation (test code = 60556-1) [facility]normal [facility] 05:50:49* Test Item Value Reference Range Interpretation Comme [facility] LIPASE (test code = 0766644866) 76 U/L 0-220 Lab Interpretation (test cod e = 54947-5) Normal [facility] (D) IMMUNE ZZCWZCBL8092-38-34 16:54:17* Test Item Value Reference Range Interpretation Comme nts RHIG CANDIDATE? (test code = 5188) No- see comment Patient is not a candidate for RhIg- Patient is Rh Positive.Performed at [facility] Laboratory Services [facility] Blood [address] [place] [address] Free: [phone] No. [id number] [facility] (D) IMMUNE BJVYKGRO7205-65-55 16:54:17* Test Item Value Reference Range Interpretation Comme [facility] RHIG CANDIDATE? (test code = 5188) No- see comment Patient is not a candidate for RhIg- Patient is Rh Positive.Performed at [facility] Laboratory [facility] Blood [address] [place] [address] Free: [phone] No. [id number] [facility] Cord Zkm1374-10-51 15:58:44* Test Item Value Reference Range Interpretation Comme [facility] VENOUS BASE EXCESS, CORD (te st code = 9079009197) -9.4 mEq/L VENOUS PH, CORD (test code = 7451998652) 7.18 7.25-7.45 L VENOUS PC02, CORD (test code = 6758851866) 53 27-49 H VENOUS PO2, CORD (test code = 5869569164) 32 17-41 VENOUS BICARBONATE, CORD (te st code = 3799014920) 19 12-29 Lab Interpretation (test cod e = 13263-6) Abnormal [facility] Cord Xfg0673-73-79 15:58:44* Test Item Value Reference Range Interpretation Comme [facility] VENOUS BASE EXCESS, CORD (te st code = 9953044942) -9.4 mEq/L VENOUS PH, CORD (test code = 1109535137) 7.18 7.25-7.45 L VENOUS PC02, CORD (test code = 8959487316) 53 27-49 H VENOUS PO2, CORD (test code = 7392565605) 32 17-41 VENOUS BICARBONATE, CORD (te st code = 0053667750) 19 12-29 Lab Interpretation (test cod e = 11213-1) Abnormal [facility]woodLactate Rxlnlrpcviinh6861-33-69 15:49:58* Test Item Value Reference Range Interpretation Comme nts LDH (test code = 2776850677) 144 U/L 120-246 Lab Interpretation (test cod e = 92855-4) Normal [facility]woodLactate Xxgjwllptzqzn0463-21-15 15:49:58* Test Item Value Reference Range Interpretation Comme nts LDH (test code = 6978144628) 144 U/L 120-246 Lab Interpretation (test cod e = 62052-9) Normal [facility]woodU[facility] Acid Piwbx1012-13-36 15:49:38* Test Item Value Reference Range Interpretation Comme nts URIC ACID (test code = 4666613927) 4.1 mg/dL 2.9-6.0 Lab Interpretation (test cod e = 84820-9) Normal [facility]woodU[facility] Acid Tsiym7613-59-87 15:49:38* Test Item Value Reference Range Interpretation Comme nts URIC ACID (test code = 3308678375) 4.1 mg/dL 2.9-6.0 Lab Interpretation (test cod e = 19332-5) Normal [facility]woodSGOT (Asparate Amino Transfer)2024-07-02 15:49:17* Test Item Value Reference Range Interpretation Comme nts AST(SGOT) (test code = 0189542856) 20 U/L 13-40 Lab Interpretation (test cod e = 33512-1) Normal [facility] KingwoodAlanine Amino Transferase (SGPT)2024-07-02 15:49:17* Test Item Value Reference Range Interpretation Comme nts ALTv (test code = 1742-6) 13 U/L 5-35 Lab Interpretation (test cod e = 15612-6) Normal [facility]woodSG[facility] (Asparate Amino Transfer)2024-07-02 15:49:17* Test Item Value Reference Range Interpretation Comme nts AST(SGOT) (test code = 2866707272) 20 U/L 13-40 Lab Interpretation (test cod e = 22974-8) Normal [facility] KingwoodAlanine Amino Transferase (SGPT)2024-07-02 15:49:17* Test Item Value Reference Range Interpretation Comme nts ALTv (test code = 1742-6) 13 U/L 5-35 Lab Interpretation (test cod e = 23318-8) [facility] Ganprwrcpq1635-48-75 15:48:57* Test Item Value Reference Range Interpretation Comme nts CREATININE (test code = 2160-0) 0.55 mg/dL 0.50-1.04 eGFR (test code = 43887-4) 131.5 mL/min/1.73m2 CKD-EPI eGFR (20 21). Assuming creatinine has been stable day-to-day for at least three months, the eGFR indicates Category G1 (>= 90 mL/min/1.73 m2) [facility] Bjrhfrnirx4145-03-35 15:48:57* Test Item Value Reference Range Interpretation Comme [facility] CREATININE (test code = 2160-0) 0.55 mg/dL 0.50-1.04 eGFR (test code = 94309-1) 131.5 mL/min/1.73m2 CKD-EPI eGFR (20 21). Assuming creatinine has been stable day-to-day for at least three months, the eGFR indicates Category G1 (>= 90 mL/min/1.73 m2) [facility]woodCBC with Xitwuwfknqpx4945-00-58 15:15:56* Test Item Value Reference Range Interpretation Comme nts WBC (test code = 6690-2) 13.85 4.30-11.10 H RBC (test code = 789-8) 3.42 3.93-5.25 L HGB (test code = 718-7) 10.0 g/dL 11.6-15.0 L HCT (test code = 4544-3) 30.9 % 35.7-45.2 L MCV (test code = 787-2) 90.4 fL 80.6-95.5 MCH (test code = 785-6) 29.2 pg 25.9-32.8 MCHC (test code = 786-4) 32.4 g/dL 31.6-35.1 RDW-SD (test code = 69744-5) 49.6 fL 39.0-49.9 RDW-CV (test code = 788-0) 16.1 % 12.0-15.5 H PLT (test code = 777-3) 162 166-358 L MPV (test code = 97928-4) 10.7 fL 9.5-12.9 NRBC/100 WBC (test code = 9671601315) 0.0 0.0-10.0 NRBC x10^3 (test code = 2314176148) See_Comment [Automated message] The system which generated this result transmitted reference range: 10*3/?L. The reference range was not used to interpret this result as normal/abnormal. GRAN MAT (NEUT) % (test code = 770-8) 88.0 % IMM GRAN % (test code = 8641702727) 0.60 % LYMPH % (test code = 736-9) 4.3 % MONO % (test code = 5905-5) 6.9 % EOS % (test code = 713-8) 0.1 % BASO % (test code = 706-2) 0.1 % GRAN MAT x10^3(ANC) (test code = 8365633264) 12.17 10*3/uL 1.88-7.09 H IMM GRAN x10^3 (test code = 2973088105) 0.09 10*3/uL 0.00-0.06 H LYMPH x10^3 (test code = 731-0) 0.60 10*3/uL 1.32-3.29 L MONO x10^3 (test code = 742-7) 0.96 10*3/uL 0.33-0.92 H EOS x10^3 (test code = 711-2) 0.03-0.39 L BASO x10^3 (test code = 704-7) 0.01-0.07 Lab Interpretation (test code = 74015-9) Abnormal [facility] with Uevcambpfkgo3502-52-95 15:15:56* Test Item Value Reference Range Interpretation Comme nts WBC (test code = 6690-2) 13.85 4.30-11.10 H RBC (test code = 789-8) 3.42 3.93-5.25 L HGB (test code = 718-7) 10.0 g/dL 11.6-15.0 L HCT (test code = 4544-3) 30.9 % 35.7-45.2 L MCV (test code = 787-2) 90.4 fL 80.6-95.5 MCH (test code = 785-6) 29.2 pg 25.9-32.8 MCHC (test code = 786-4) 32.4 g/dL 31.6-35.1 RDW-SD (test code = 76946-5) 49.6 fL 39.0-49.9 RDW-CV (test code = 788-0) 16.1 % 12.0-15.5 H PLT (test code = 777-3) 162 166-358 L MPV (test code = 58290-9) 10.7 fL 9.5-12.9 NRBC/100 WBC (test code = 5243357080) 0.0 0.0-10.0 NRBC x10^3 (test code = 2750654273) See_Comment [Automated message] The system which generated this result transmitted reference range: 10*3/?L. The reference range was not used to interpret this result as normal/abnormal. GRAN MAT (NEUT) % (test code = 770-8) 88.0 % IMM GRAN % (test code = 8478308834) 0.60 % LYMPH % (test code = 736-9) 4.3 % MONO % (test code = 5905-5) 6.9 % EOS % (test code = 713-8) 0.1 % BASO % (test code = 706-2) 0.1 % GRAN MAT x10^3(ANC) (test code = 9205332646) 12.17 10*3/uL 1.88-7.09 H IMM GRAN x10^3 (test code = 6274680017) 0.09 10*3/uL 0.00-0.06 H LYMPH x10^3 (test code = 731-0) 0.60 10*3/uL 1.32-3.29 L MONO x10^3 (test code = 742-7) 0.96 10*3/uL 0.33-0.92 H EOS x10^3 (test code = 711-2) 0.03-0.39 L BASO x10^3 (test code = 704-7) 0.01-0.07 Lab Interpretation (test code = 31500-3) Abnormal [facility]woodType and Screen - ONCE ZURC0079-86-31 15:12:00 * Test Item Value Reference Range Interpretation Comme nts ABO & RH (test code = 20) O POSITIVE IAT (test code = 1185) Negative [facility]woodType and Screen - ONCE [id number] 15:12:00 * Test Item Value Reference Range Interpretation Comme nts ABO & RH (test code = 20) O POSITIVE IAT (test code = 1185) Negative [facility] GLUCOSE (AUTOMATED)2024-07-02 14:11:04* Test Item Value Reference Range Interpretation Comme nts POCT GLU (test code = 3000512034) 100 mg/dL 70-110 Lab Interpretation (test cod e = 58514-3) Normal [facility] GLUCOSE (AUTOMATED)2024-07-02 14:11:04* Test Item Value Reference Range Interpretation Comme nts POCT GLU (test code = 3506298971) 100 mg/dL 70-110 Lab Interpretation (test cod e = 39258-3) Normal [facility] GLUCOSE (AUTOMATED)2024-07-02 09:11:58* Test Item Value Reference Range Interpretation Comme nts POCT GLU (test code = 7065723506) 98 mg/dL 70-110 Lab Interpretation (test cod e = 56128-7) Normal [facility] GLUCOSE (AUTOMATED)2024-07-02 09:11:58* Test Item Value Reference Range Interpretation Comme nts POCT GLU (test code = 3797720000) 98 mg/dL 70-110 Lab Interpretation (test cod e = 22323-1) Normal [facility] GLUCOSE (AUTOMATED)2024-07-02 05:15:56* Test Item Value Reference Range Interpretation Comme nts POCT GLU (test code = 8484342407) 131 mg/dL 70-110 H Lab Interpretation (test cod e = 73272-2) Abnormal [facility] GLUCOSE (AUTOMATED)2024-07-02 05:15:56* Test Item Value Reference Range Interpretation Comme [facility] POCT GLU (test code = 8708129819) 131 mg/dL 70-110 H Lab Interpretation (test cod e = 17436-1) Abnormal [facility]wood[facility]axial Eiitu2450-42-10 03:00:00 Elizabeth Marrero MD ? ? 07/01/2024 10:42 PM Central Neuraxial Block Date/Time: 07/01/2024 10:00 PM Performed by: Elizabeth Marrero MDAuthorized by: Elizabeth Marrero MD ?Patient Location: OBEnd Time: 07/01/2024 10:30 PMReason for Block: Labor analgesia and Patient requestStaff: ?Anesthesiologist: Elizabeth Marrero MD ?Performed by: anesthesiologistPreanesthetic Checklist: anesthesia consent, risks and benefits explained, timeout performed and patient identifiedProcedure: ?Type of Neuraxial: Continuous and Epidural ?Epidural Description: replacement ? Sterility Prep cap, gloves and hand hygiene ? ?Sedation Level no sedation ?Patient Position: sitting ?Prep: Betadine ? ?Monitoring: NIBP, heart rate, heart rate / toco and continuous pulse ox ?Location: lumbar (1-5) ?Lumbar: L3-L4 ?Approach: midline ? ?Technique: MILA air ?Guidance with: landmark technique}Epidural/Spinal Sidney and/or Catheter: ?Epidural/Spinal Kit: BBraun ?Needle Type: Tuohy ?Needle Gauge: 17 G ?Needle Length: 3.5 in (8.89 cm) ?Needle Insertion Depth: 7 ?Catheter Type: multiport ? ?Catheter Size: 19 G ? ?Catheter at Skin Depth: 12 ?Number of Attempts: 1 ?Test Dose: lidocaine 1.5% with epinephrine 1-to-200,000 and negative ? ?Dose: 5 cc ? ?Catheter Securement Method: clear occlusive dressing, liquid medical adhesive and surgical tapeAssessment: ?Sensory Level: below T10 ?Block Outcome: patient satisfied, patient tolerated procedure well, patient comfortable, pain improved and positive pain relief ? ?Procedure Assessment: patient tolerated procedure well with no complications[facility] 2024-07-02 01:01:58* Test Item Value Reference Range Interpretation Comme nts POCT GLU (test code = 8236794564) 105 mg/dL 70-110 Lab Interpretation (test cod e = 29074-5) Normal [facility] GLUCOSE (AUTOMATED)2024-07-02 01:01:58* Test Item Value Reference Range Interpretation Comme nts POCT GLU (test code = 3903005247) 105 mg/dL 70-110 Lab Interpretation (test cod e = 67848-7) Normal [facility] GLUCOSE (AUTOMATED)2024-07-01 20:46:33* Test Item Value Reference Range Interpretation Comme nts POCT GLU (test code = 8802653452) 102 mg/dL 70-110 Lab Interpretation (test cod e = 35398-7) Normal [facility] GLUCOSE (AUTOMATED)2024-07-01 20:46:33* Test Item Value Reference Range Interpretation Comme nts POCT GLU (test code = 3315808812) 102 mg/dL 70-110 Lab Interpretation (test cod e = 56511-7) Normal [facility] GLUCOSE (AUTOMATED)2024-07-01 17:00:01* Test Item Value Reference Range Interpretation Comme nts POCT GLU (test code = 1171071552) 99 mg/dL 70-110 Lab Interpretation (test cod e = 89804-1) Normal [facility] GLUCOSE (AUTOMATED)2024-07-01 17:00:01* Test Item Value Reference Range Interpretation Comme nts POCT GLU (test code = 9971768635) 99 mg/dL 70-110 Lab Interpretation (test cod e = 79315-2) Normal [facility] GLUCOSE (AUTOMATED)2024-07-01 12:55:25* Test Item Value Reference Range Interpretation Comme nts POCT GLU (test code = 5172011334) 101 mg/dL 70-110 Lab Interpretation (test cod e = 39154-3) Normal [facility] GLUCOSE (AUTOMATED)2024-07-01 12:55:25* Test Item Value Reference Range Interpretation Comme nts POCT GLU (test code = 0657960398) 101 mg/dL 70-110 Lab Interpretation (test cod e = 82993-0) Normal [facility] GLUCOSE (AUTOMATED)2024-07-01 08:59:55* Test Item Value Reference Range Interpretation Comme nts POCT GLU (test code = 4897491527) 103 mg/dL 70-110 Lab Interpretation (test cod e = 41357-7) Normal [facility] GLUCOSE (AUTOMATED)2024-07-01 08:59:55* Test Item Value Reference Range Interpretation Comme nts POCT GLU (test code = 0226910849) 103 mg/dL 70-110 Lab Interpretation (test cod e = 87566-5) Normal [facility] OR AIMEE ONLY - [id number] 06:27:37* Test Item Value Reference Range Interpretation Comme nts RPR (Qualitative) (test code = 26287-4) Nonreactive Nonreactive Lab Interpretation (test cod e = 92670-6) [facility] OR AIM[facility] ONLY - [id number] 06:27:37* Test Item Value Reference Range Interpretation Comme nts RPR (Qualitative) (test code = 32942-6) Nonreactive Nonreactive Lab Interpretation (test cod e = 61855-6) Normal [facility] Neuraxial Ozils4527-30-21 05:18:00 Yamil Solis MD ? ? 07/01/2024 ?1:17 AM Central Neuraxial Block Date/Time: 07/01/2024 12:18 AM Performed by: Yamil Solis MDAuthorized by: Yamil Solis MD ?End Time: 07/01/2024 12:47 AMReason for Block: OB request, Patient request, Labor analgesia, Surgical anesthesia and Post-op pain managementStaff: ?Anesthesiologist: Yamil Solis MD ?Performed by: anesthesiologistPreanesthetic Checklist: patient identified, IV checked, risks and benefits explained, monitors and equipment checked, timeout performed, pre-op evaluation, site marked, anesthesia consent, ob/surgical consent approval and ob/surgical consent verifiedProcedure: ?Type of Neuraxial: Epidural ?Epidural Description: 1st attempt ? Sterility Prep cap, gloves, drape, hand hygiene and mask ? ?Sedation Level no sedation ?Patient Position: sitting ?Prep: Betadine and patient draped ? ?Monitoring: heart rate, continuous pulse ox, heart rate / toco and NIBP ?Location: lumbar (1-5) ?Lumbar: L3-L4 ?Approach: midline ? ?Technique: catheter and MILA saline ?Guidance with: landmark technique}Epidural/Spinal Sidney and/or Catheter: ?Epidural/Spinal Kit: BBraun ?Needle Type: Tuohy ?Needle Gauge: 18 G ?Needle Length: 3.5 in (8.89 cm) ?Needle Insertion Depth: 7 ?Catheter Type: end hole ? ?Catheter Size: 19 G ? ?Catheter at Skin Depth: 11 ?Number of Attempts: 3 ?Test Dose: lidocaine 1.5% with epinephrine 1-to-200,000 ? ?Dose: 5 cc ? ?Catheter Securement Method: surgical tape and TegadermAssessment: ?Block Outcome: appropriate sensory block, successful block, patient satisfied and patient tolerated procedure well ? ?ProcedureAssessment: patient tolerated procedure well with no complicationsNotes: ? Smooth and atraumatic, (+) Local, (+) [facility]UniversThe [facility])2024-07-01 05:02:57* Test Item Value Reference Range Interpretation Comme nts POCT GLU (test code = 7154214241) 100 mg/dL 70-110 Lab Interpretation (test cod e = 64528-4) Normal [facility] GLUCOSE (AUTOMATED)2024-07-01 05:02:57* Test Item Value Reference Range Interpretation Comme nts POCT GLU (test code = 3113245969) 100 mg/dL 70-110 Lab Interpretation (test cod e = 81076-9) Normal [facility] GLUCOSE (AUTOMATED)2024-07-01 02:33:28* Test Item Value Reference Range Interpretation Comme nts POCT GLU (test code = 2557670391) 92 mg/dL 70-110 Lab Interpretation (test cod e = 26716-5) Normal [facility] GLUCOSE (AUTOMATED)2024-07-01 02:33:28* Test Item Value Reference Range Interpretation Comme nts POCT GLU (test code = 0210462903) 92 mg/dL 70-110 Lab Interpretation (test cod e = 71432-3) Normal [facility] GLUCOSE (AUTOMATED)2024-06-30 23:15:28* Test Item Value Reference Range Interpretation Comme nts POCT GLU (test code = 6724571246) 141 mg/dL 70-110 H Lab Interpretation (test cod e = 96475-3) Abnormal [facility] GLUCOSE (AUTOMATED)2024-06-30 23:15:28* Test Item Value Reference Range Interpretation Comme nts POCT GLU (test code = 0080925261) 141 mg/dL 70-110 H Lab Interpretation (test cod e = 94180-2) Abnormal [facility]Hep[facility]ib[facility] B Surface Fkhuflb8747-86-03 21:15:20 * Test Item Value Reference Range Interpretation Comme nts HBsAg Semi-Quantitative (donna t code = 5195-3) 0.06 Negative [facility] B Surface Bwhyxmf1612-55-72 21:15:20 * Test Item Value Reference Range Interpretation Comme nts HBsAg Semi-Quantitative (donna t code = 5195-3) 0.06 Negative [facility]woodHIV [facility]/2 Ag-Ab with Fopnal5633-80-16 20:34:14* Test Item Value Reference Range Interpretation Comme nts HIV Semi-quantitative (test code = 93344-9) 0.19 Negative KATELYNN (test code = KATELYNN) Non-reactive for HIV-1 antigen and HIV-1/HIV-2 antibodies. ?No laboratory evidence of HIV infection. ?Repeat in 2-4 weeks if acute HIV infection is suspected. [facility]woodHIV [facility]/2 Ag-Ab with Ultwxq3454-20-71 20:34:14* Test Item Value Reference Range Interpretation Comme nts HIV Semi-quantitative (test code = 05026-1) 0.19 Negative KATELYNN (test code = KATELYNN) Non-reactive for HIV-1 antigen and HIV-1/HIV-2 antibodies. ?No laboratory evidence of HIV infection. ?Repeat in 2-4 weeks if acute HIV infection is suspected. [facility] Conf[facility] ([facility] Only)2024-06-30 19:52:00* Test Item Value Reference Range Interpretation Comme nts ABO & RH (test code = 20) O Positive [facility]AB[facility]H Confirm[facility] (Lab Only)2024-06-30 19:52:00* Test Item Value Reference Range Interpretation Comme nts ABO & RH (test code = 20) O Positive [facility] GLUCOSE (AUTOMATED)2024-06-30 19:05:58* Test Item Value Reference Range Interpretation Comme nts POCT GLU (test code = 1358973941) 115 mg/dL 70-110 H Lab Interpretation (test cod e = 11734-1) Abnormal [facility]wood[facility] GLU[facility] (AUTOMATED)2024-06-30 19:05:58* Test Item Value Reference Range Interpretation Comme [facility] POCT GLU (test code = 1161937250) 115 mg/dL 70-110 H Lab Interpretation (test cod e = 72037-9) Abnormal [facility] KingwoodCBC with Wxifjufryvog6965-35-45 17:55:54* Test Item Value Reference Range Interpretation Comme [facility] WBC (test code = 6690-2) 7.86 4.30-11.10 RBC (test code = 789-8) 3.58 3.93-5.25 L HGB (test code = 718-7) 10.6 g/dL 11.6-15.0 L HCT (test code = 4544-3) 32.1 % 35.7-45.2 L MCV (test code = 787-2) 89.7 fL 80.6-95.5 MCH (test code = 785-6) 29.6 pg 25.9-32.8 MCHC (test code = 786-4) 33.0 g/dL 31.6-35.1 RDW-SD (test code = 42258-1) 45.9 fL 39.0-49.9 RDW-CV (test code = 788-0) 15.3 % 12.0-15.5 PLT (test code = 777-3) 196 166-358 MPV (test code = 90829-7) 10.8 fL 9.5-12.9 NRBC/100 WBC (test code = 1914203665) 0.0 0.0-10.0 NRBC x10^3 (test code = 1297117890) See_Comment [Automated [employer] ge] The system which generated this result transmitted reference range: 10*3/?L. The reference range was not used to interpret this result as normal/abnormal. GRAN MAT (NEUT) % (test code = 770-8) 71.2 % IMM GRAN % (test code = 5143915982) 0.80 % LYMPH % (test code = 736-9) 17.2 % MONO % (test code = 5905-5) 9.7 % EOS % (test code = 713-8) 0.8 % BASO % (test code = 706-2) 0.3 % GRAN MAT x10^3(ANC) (test code = 7882103781) 5.61 10*3/uL 1.88-7.09 IMM GRAN x10^3 (test code = 4300705691) 0.06 10*3/uL 0.00-0.06 LYMPH x10^3 (test code = 731-0) 1.35 10*3/uL 1.32-3.29 MONO x10^3 (test code = 742-7) 0.76 10*3/uL 0.33-0.92 EOS x10^3 (test code = 711-2) 0.06 10*3/uL 0.03-0.39 BASO x10^3 (test code = 704-7) 0.01-0.07 Lab Interpretation (test code = 10044-4) Abnormal [facility]woodCB with Apshkykfegwi4987-52-76 17:55:54* Test Item Value Reference Range Interpretation Comme nts WBC (test code = 6690-2) 7.86 4.30-11.10 RBC (test code = 789-8) 3.58 3.93-5.25 L HGB (test code = 718-7) 10.6 g/dL 11.6-15.0 L HCT (test code = 4544-3) 32.1 % 35.7-45.2 L MCV (test code = 787-2) 89.7 fL 80.6-95.5 MCH (test code = 785-6) 29.6 pg 25.9-32.8 MCHC (test code = 786-4) 33.0 g/dL 31.6-35.1 RDW-SD (test code = 10857-3) 45.9 fL 39.0-49.9 RDW-CV (test code = 788-0) 15.3 % 12.0-15.5 PLT (test code = 777-3) 196 166-358 MPV (test code = 37707-9) 10.8 fL 9.5-12.9 NRBC/100 WBC (test code = 7825727869) 0.0 0.0-10.0 NRBC x10^3 (test code = 5649970386) See_Comment [Automated messa ge] The system which generated this result transmitted reference range: 10*3/?L. The reference range was not used to interpret this result as normal/abnormal. GRAN MAT (NEUT) % (test code = 770-8) 71.2 % IMM GRAN % (test code = 6326401867) 0.80 % LYMPH % (test code = 736-9) 17.2 % MONO % (test code = 5905-5) 9.7 % EOS % (test code = 713-8) 0.8 % BASO % (test code = 706-2) 0.3 % GRAN MAT x10^3(ANC) (test code = 5025852236) 5.61 10*3/uL 1.88-7.09 IMM GRAN x10^3 (test code = 3896651793) 0.06 10*3/uL 0.00-0.06 LYMPH x10^3 (test code = 731-0) 1.35 10*3/uL 1.32-3.29 MONO x10^3 (test code = 742-7) 0.76 10*3/uL 0.33-0.92 EOS x10^3 (test code = 711-2) 0.06 10*3/uL 0.03-0.39 BASO x10^3 (test code = 704-7) 0.01-0.07 Lab Interpretation (test code = 17394-9) [facility] [id number] 17:47:00 * Test Item Value Reference Range Interpretation Comme nts ABO & RH (test code = 20) O POSITIVE IAT (test code = 1185) Negative [facility] [id number] 17:47:00 * Test Item Value Reference Range Interpretation Comme nts ABO & RH (test code = 20) O POSITIVE IAT (test code = 1185) Negative [facility] w/o Specific [id number] 15:54:00* Test Item Value Reference Range Interpretation Comme nts POCT PH U (test code = 3254) n.a 5-8 POCT U LEUK EST (test code = 3263) n.a Negative - Negative POCT U NIT (test code = 3262) n.a Negative - Negati ve POCT U PROT (test code = 3259) trace Negative - Negat kira POCT U GLU (test code = 3256) negative Negative - Negati ve POCT U KETONE (test code = 3258) n.a Negative - Neg ative POCT U BLD (test code = 3257) n.a Negative - Negati ve [facility] [id number] 20:59:57Ordered by an unspecified provider.[facility]woodPOMD Urinalysis w/o Specific [id number] 15:50:00* Test Item Value Reference Range Interpretation Comme nts POCT PH U (test code = 3254) n/a 5-8 POCT U LEUK EST (test code = 3263) n/a Negative - Negative POCT U NIT (test code = 3262) n/a Negative - Negati ve POCT U PROT (test code = 3259) Negative Negative - Negat kira POCT U GLU (test code = 3256) Normal Negative - Negati ve POCT U KETONE (test code = 3258) n/a Negative - Neg ative POCT U BLD (test code = 3257) n/a Negative - Negati ve [facility]wood[facility] Metabolic Panel ([id number])2024-06-08 12:00:53* Test Item Value Reference Range Interpretation Comme nts NA (test code = 9243139041) 134 mmol/L 135-145 L K (test code = 3382277342) 3.8 mmol/L 3.5-5.0 CL (test code = 6150059462) 105 mmol/L 98-108 CO2 TOTAL (test code = 2881309485) 17 mmol/L 23-31 L AGAP (test code = 0441974518) 12 2-16 BUN (test code = 4276500012) 5 mg/dL 7-23 L GLUCOSE (test code = 1358931738) 159 mg/dL 70-110 H CREATININE (test code = 2160-0) 0.47 mg/dL 0.50-1.04 L TOTAL BILI (test code = 9988226599) 0.6 mg/dL 0.1-1.1 CALCIUM (test code = 2678679010) 8.9 mg/dL 8.6-10.6 T PROTEIN (test code = 3149215782) 6.9 g/dL 6.3-8.2 ALBUMIN (test code = 5075035445) 3.5 g/dL 3.5-5.0 ALK PHOS (test code = 5077169342) 156 U/L 34-122 H ALTv (test code = 1742-6) 18 U/L 5-35 AST(SGOT) (test code = 1971639166) 43 U/L 13-40 H eGFR (test code = 65202-1) 136.5 mL/min/1.73m2 CKD-EPI eGFR (2020). Assuming creatinine has been stable day-to-day for at least three months, the eGFR indicates Category G1 (>= 90 mL/min/1.73 m2) Lab Interpretation (test code = 86404-3) Abnormal [facility]wood[facility] with [id number] 11:47:12* Test Item Value Reference Range Interpretation Comme nts WBC (test code = 6690-2) 9.91 4.30-11.10 RBC (test code = 789-8) 3.43 3.93-5.25 L HGB (test code = 718-7) 10.1 g/dL 11.6-15.0 L HCT (test code = 4544-3) 30.6 % 35.7-45.2 L MCV (test code = 787-2) 89.2 fL 80.6-95.5 MCH (test code = 785-6) 29.4 pg 25.9-32.8 MCHC (test code = 786-4) 33.0 g/dL 31.6-35.1 RDW-SD (test code = 39784-5) 44.0 fL 39.0-49.9 RDW-CV (test code = 788-0) 13.5 % 12.0-15.5 PLT (test code = 777-3) 200 166-358 MPV (test code = 67323-9) 9.9 fL 9.5-12.9 NRBC/100 WBC (test code = 7064234786) 0.0 0.0-10.0 NRBC x10^3 (test code = 5468515260) See_Comment [Automated messa ge] The system which generated this result transmitted reference range: 10*3/?L. The reference range was not used to interpret this result as normal/abnormal. GRAN MAT (NEUT) % (test code = 770-8) 86.3 % IMM GRAN % (test code = 9503124586) 1.40 % LYMPH % (test code = 736-9) 3.8 % MONO % (test code = 5905-5) 7.9 % EOS % (test code = 713-8) 0.4 % BASO % (test code = 706-2) 0.2 % GRAN MAT x10^3(ANC) (test code = 3496541288) 8.55 10*3/uL 1.88-7.09 H IMM GRAN x10^3 (test code = 2292461299) 0.14 10*3/uL 0.00-0.06 H LYMPH x10^3 (test code = 731-0) 0.38 10*3/uL 1.32-3.29 L MONO x10^3 (test code = 742-7) 0.78 10*3/uL 0.33-0.92 EOS x10^3 (test code = 711-2) 0.04 10*3/uL 0.03-0.39 BASO x10^3 (test code = 704-7) 0.01-0.07 Lab Interpretation (test code = 01474-0) Abnormal [facility]woodBV/VAGINITIS [id number] 21:46:00* Test Item Value Reference Range Interpretation Comme nts TRICHOMONAS: (test code = 53174402) NOT DETECTED NOT DETECTED N GARDNERELLA: (test code = 63251045) DETECTED NOT DETECTED A Increased levels of G. vaginalis may not be significantin the absence of signs and symptoms of bacterialvaginosis. MARY LOU: (test code = 28629499) NOT DETECTED NOT DETECTED N MARIO VIDAL [facility], [id number] 21:46:00* Test Item Value Reference Range Interpretation Comme nts SOURCE: (test code = 99714944) URINE STATUS: (test code = 21921090) FINAL ISOLATE 1: (test code = 41882641) Greater than 100,000 CFU/mL of Non-uropathogenic Gram positive organism May represent colonizers from external and internal genitalia. No further testing (including susceptibility) will be performed. [facility], UR [id number] 16:33:00* Test Item Value Reference Range Interpretation Comme nts SOURCE: (test code = 14260521) CLEAN CATCH STATUS: (test code = 55296026) FINAL RESULT: (test code = 83603384) Less than 10,000 CFU/mL of single Gram positive organism isolated. No further testing will be performed. If clinically indicated, recollection using a method to minimize contamination, with prompt transfer to Urine Culture Transport Tube, is recommended. [facility] VID[facility], UR [id number] 13:56:00* Test Item Value Reference Range Interpretation Comme nts SOURCE: (test code = 08447808) CLEAN CATCH STATUS: (test code = 36370224) PRELIMINARY RESULT: (test code = 80911393) Culture in progress [facility] [id number] 13:36:00* Test Item Value Reference Range Interpretation Comme nts INTERPRETATION: (test code = 46449509) Screen negative for open NTD. Please Note: This patient's diabetic status was not availableat the time of testing. In order not to delay theresults, we have calculated the multiple of median (MoM)without factoring in this information. This informationmay significantly alter the results and may even changethe interpretation from normal to abnormal or vice versa.We will promptly recalculate results when the diabeticstatus is provided. Risk for ONTD (test code = 48525212) <1 IN 5000 AFP, Serum (test code = 64727854) 21.0 ng/mL N AFP MoM (test code = 64074496) 0.72 N COMMENTS: (test code = 15816139) This patient's JAIMEE (estimated date of delivery)was used to calculate the gestational age. The AFP multiple of the median (MoM) cannot beadjusted for all patient variables since certaindemographic information (as indicated) was notprovided at the time of testing. The maternal date ofbirth, maternal weight, race and diabetic status affectthe risk calculation and these parameters must betaken into consideration when calculating theresults. Providing this information will allow us torecalculate the results and report a more accurateevaluation of the patient's risk status. Contact [employer] for assistance. The single AFPmarker is not recommended for Down syndrome and otherchromosomal abnormalities screening. Much greatersensitivity is achieved with multiple markers, such asAFP, hCG, unconjugated estriol, and/or dimericinhibin A, as recommended by the [employer] [employer] Of[employer] Gyne[employer]. The AFP test result indicates that this patient isscreen negative for open NTD. It should be notedthat normal test results can never guarantee thebirth of a normal baby and that 2-3% of newbornshave some type of physical or mental defect, manyof which are undetectable through any knownprenatal diagnostic technique. COMMENT (test code = 95881791) This is a screen ing test, not a diagnostic test. Thisrisk assessment report is based in part on demographicdata provided by the ordering physician. Please notifythe laboratory promptly if any data are incorrect. Forassistance with recalculations, please call your local[facility] laboratory. For assistance withinterpretation of these results, please contact [employer] genetic counselor or [phone]). Interpretive CutoffsScreen Positive for Open NTD: > or = 2.50 adjusted MOM > or = 1.90 adjusted MOM for insulin-dependent diabetics > or = 4.00 adjusted MOM for twins > or = 3.50 adjusted MOM for twins insulin-dependent diabetics > or = 4.50 adjusted MOM for tripletsFor additional information, please refer [email or web address] [email or web address](This link is being provided for informational/educational purposes only.) Calc'd Gestational Age (test code = 24300730) 15.7 weeks N Maternal Weight (test code = 07216754) 179 lbs N Est'd Date of Delivery (test code = 29526227) 07/07/2024 JAIMEE Determined by (test code = 01381523) LMP Mother's Ethnic Origin (test code = 99806841) Number of Fetuses (test code = 38622644) 1 N Insulin Depend Diabetic (test code = 17310611) NOT GIVEN Repeat Specimen (test code = 68641202) NO Hx Of Neural Tube Defects (test code = 38867960) NOT GIVEN Prev Down Synd (test code = 98297581) NOT GIVEN Donor Egg (test code = 24083691) NO Donor Age: Egg Retrieval (test code = 90727440) NOT GIVEN CONTACT HISTORY: DATE TIME CONTACT 01/21/2024 12:30 AM TEST NAMEACTION TAKEN See ADT [facility], [place], GE[place], [id number] 15:06:00* Test Item Value Reference Range Interpretation Comme nts GLUCOSE, FASTING (test code = 11363317) 91 mg/dL 65-94 N GLUCOSE, 1 HOUR (test code = 71622821) 203 mg/dL 65-179 H GLUCOSE, 2 HOUR (test code = 52160847) 145 mg/dL 65-154 N GLUCOSE, 3 HOUR (test code = 85724788) 115 mg/dL 65-139 N COMMENT (test code = 21697339) Luiz/Mark flores Criteria: Two or more values greater than the above reference intervals are suggestive of gestational diabetes. [facility] History and Physical Notes Date/Time Note Provider Source 2024-06-30 11:19:26 TRIAGE HISTORY & PHYSICAL IDENTIFYING DATA Iliana Macdonald is 24 year old, /White, 39w0d, female with JAIMEE 07/07/2024, Date entered prior to episode creation. : 2000 Primary Care Physician: PATIENT DOES NOT HAVE A PCP CHIEF COMPLAINT induction HISTORY OF PRESENT ILLNESS Iliana Macdonald is a 24 year old female @ 39w0d +FM. No VB, LOF, or CTX. No pre-eclampsia sx or other complaints. PAST OBSTETRIC HISTORY OB History Para Term AB Living 1 SAB IAB Ectopic Multiple Live Births # Outcome Date GA Lbr Trip/2nd Weight Sex Delivery Anes PTL Lv 1 Current PAST MEDICAL HISTORY Problem list: Patient Active Problem List Diagnosis Date Noted Positive GBS test 06/22/2024 GDM, class A2 06/15/2024 High-risk in third trimester 05/31/2024 39 weeks gestation of 05/31/2024 Obesity in 05/31/2024 Operations: No past surgical history on file. No past medical history on file. CURRENT HEALTH STATUS Medications: Current Facility-Administered Medications Medication Dose Route Frequency Last Rate Last Admin carboprost (HEMABATE) injection 250 mcg 250 mcg Intramuscular Q2HPRN D5W-LR IV infusion 1,000 mL 1,000 mL IV Infusion TITRATE 125 mL/hr at 06/30/24 1225 1,000 mL at 06/30/24 1225 dextrose 50 % in water (D50W) injection 25 mL 25 mL Slow IV Push PRN FENTanyl (PF) (SUBLIMAZE) injection 100 mcg 100 mcg Slow IV Push Q1HPRN 100 mcg at 06/30/24 1310 glucagon HCL injection 1 mg 1 mg Intramuscular PRN insulin regular human (HUMULIN R) injection Subcutaneous SEE-INSTRUCTIONS lactated ringers IV infusion 500 mL 500 mL IV Infusion ONCE lactated ringers IV infusion 500 mL 500 mL IV Infusion PRN - SEE INSTRUCTIONS lactated ringers IV infusion 500 mL 500 mL IV Infusion PRN - SEE INSTRUCTIONS lidocaine 1% (PF) (XYLOCAINE) injection 0.3 mL 0.3 mL Infiltration PRN - SEE INSTRUCTIONS methylergonovine (METHERGINE) injection 0.2 mg 0.2 mg Intramuscular Q4HPRN miSOPROStol (CYTOTEC) quarter-tablet 25 mcg 25 mcg Oral Q2H 25 mcg at 06/30/24 1348 miSOPROStoL (CYTOTEC) tablet 200 mcg 200 mcg Rectal PRN oxytocin (PITOCIN) 30 units in NS 500 mL IV infusion 600 mL/hr IV Infusion PRN penicillin GK 3 million units in NS 50 mL IV infusion (CNR) 3 Million Units IV Piggyback Q4H ABX proMETHazine (PHENERGAN) 25 mg in NS 50 mL IV piggyback (CNR) 25 mg IV Piggyback Q4HPRN sodium citrate-citric acid (BICITRA) 500-334 mg/5 mL solution 30 mL 30 mL Oral PRE-PROCEDURE ONCE sodium citrate-citric acid (BICITRA) 500-334 mg/5 mL solution 30 mL 30 mL Oral PRE-PROCEDURE ONCE terbutaline (BRETHINE) injection 0.25 mg 0.25 mg Subcutaneous PRN tranexamic acid (CYKLOKAPRON) 1,000 mg in NaCl 0.9% (NS) 250 mL piggyback 1,000 mg IV Piggyback PRN Allergies and drug reactions: Patient has no known allergies. HOME MEDICATIONS Medications Prior to Admission Medication Sig Dispense Refill Last Dose ferrous sulfate (IRON, FERROUS SULFATE,) 325 mg (65 mg iron) tablet Take 1 tablet by mouth in the morning and 1 tablet in the evening. 60 tablet 0 Taking Alcohol Swabs (ALCOHOL PADS) PadM Apply to area(s) 4 (four) times daily. 100 Each 0 misc blood sugar diagnostic (BLOOD GLUCOSE TEST) strip Check blood sugar 4 times a day 100 Each 0 misc Blood-Glucose Meter Kit Use as directed 1 Kit 0 misc Lancets Misc Check blood sugar 4 times a day 100 Each 0 misc PNV 11-Iron Fum-Folic Acid-OM3 28 mg iron-1 mg -200 mg Cap Take by mouth. Taking SOCIAL HISTORY Tobacco History: Social History Tobacco Use Smoking Status Never Smokeless Tobacco Never Drug History: Social History Substance and Sexual Activity Drug Use Never Alcohol History: Social History Substance and Sexual Activity Alcohol Use Not Currently FAMILY HISTORY Family History Problem Relation Age of Onset Diabetes Mother Heart Paternal Grandfather REVIEW OF SYSTEMS General: negative Constitutional: negative Eyes: negative ENT/Mouth: negative Cardiovascular: negative Respiratory: negative Gastrointestinal:negative Genitourinary: negative Musculoskeletal: negative Skin/breast: negative Neurological: negative Psychiatric: negative Endocrine: negative Hemat/Lymph: negative Allergic/Immuno:none VITAL SIGNS BP: (110-129)/(69-84) Temp: [36.9 ?C (98.5 ?F)] Temp source: Oral (06/30 1215) Pulse: [66-93] Resp: [18] SpO2: [98 %-99 %] Height: [154.9 cm (5' 1")] Weight: -- BMI (calculated): [0] PHYSICAL EXAMINATIONS Gen: alert and oriented, well appearing, no distress CV: RRR, normal S1/S2, no m/r/g Resp: normal work of breathing, lungs CTAB Abd: gravid, soft, NTTP Ext: no calf tenderness or edema : SVE closed/thick/high REVIEW OF LABORATORY, PATHOLOGY, AND RADIOLOGY DATA Lab results: Type & Screen HIV Hep B Syphilis Chlamydia ABO & RH Date Value Ref Range Status 06/30/2024 O Positive Final No results found for: "HIVMULTIPLEX" No components found for: "HBSHBSAG" No results found for: "SYPIGG" C. trachomatis Nucleic Acid Date Value Ref Range Status 06/15/2024 Negative Negative Final IAT Date Value Ref Range Status 06/30/2024 Negative Final Varicella Rubella Glucose Group B Strep CBC No results found for: "VZVIGG" No results found for: "RUBG" No results found for: "EROD6FA" No results found for: "CGBS" HGB Date Value Ref Range Status 06/30/2024 10.6 (L) 11.6 - 15.0 g/dL Final HCT Date Value Ref Range Status 06/30/2024 32.1 (L) 35.7 - 45.2 % Final PLT Date Value Ref Range Status 06/30/2024 196 166 - 358 10*3/?L Final Active Hospital Problems Diagnosis Date Noted Positive GBS test 06/22/2024 GDM, class A2 06/15/2024 High-risk in third trimester 05/31/2024 Obesity in 05/31/2024 39 weeks gestation of 05/31/2024 Resolved Hospital Problems No resolved problems to display. Present on Admission: GDM, class A2 High-risk in third trimester Obesity in Positive GBS test 39 weeks gestation of Placenta Accreta Screening Prior ? : No Prior Uterine Surgery?: No Placenta low lying/previa in current ? : No Screening outcome: A positive screening outcome indicates a history of prior delivery or prior uterine surgery, AND the presence of either a placenta low lying/previa or ultrasound suspicion of PASD in the current . Negative screening. ASSESSMENT AND PLAN Iliana Macdonald is a 24 year old female @ 39w0d here for an induction. Induction - FB in placed. Misoprostol for cervical ripening - Cephalic presentation confirmed - GBS positive: PCN ordered - 06/23/24 ultrasound: EFW 6 lbs 11 oz, 35%tile A2DM - on metformin 500 mg BID - FSBG on presentation 115 - SSI and FSBG ordered PVT of Dr. Hagen, please see OB Summary for more details Trell Hagen MD 06/30/2024 11:20 AM [facility] Procedure Notes Date/Time Note Provider Source 2024-07-01 22:40:50 Associated Order(s): Central Neuraxial Block Central Neuraxial Block Date/Time: 07/01/2024 10:00 PM Performed by: Elizabeth Marrero MD Authorized by: Elizabeth Marrero MD Patient Location: OB End Time: 07/01/2024 10:30 PM Reason for Block: Labor analgesia and Patient request Staff: Anesthesiologist: Elizabeth Marrero MD Performed by: anesthesiologist Preanesthetic Checklist: anesthesia consent, risks and benefits explained, timeout performed and patient identified Procedure: Type of Neuraxial: Continuous and Epidural Epidural Description: replacement Sterility Prep cap, gloves and hand hygiene Sedation Level no sedation Patient Position: sitting Prep: Betadine Monitoring: NIBP, heart rate, heart rate / toco and continuous pulse ox Location: lumbar (1-5) Lumbar: L3-L4 Approach: midline Technique: MILA air Guidance with: landmark technique} Epidural/Spinal Sidney and/or Catheter: Epidural/Spinal Kit: Annmarie Needle Type: Tuohy Needle Gauge: 17 G Needle Length: 3.5 in (8.89 cm) Needle Insertion Depth: 7 Catheter Type: multiport Catheter Size: 19 G Catheter at Skin Depth: 12 Number of Attempts: 1 Test Dose: lidocaine 1.5% with epinephrine 1-to-200,000 and negative Dose: 5 cc Catheter Securement Method: clear occlusive dressing, liquid medical adhesive and surgical tape Assessment: Sensory Level: below T10 Block Outcome: patient satisfied, patient tolerated procedure well, patient comfortable, pain improved and positive pain relief Procedure Assessment: patient tolerated procedure well with no complications AN-ANESTHESIOLOGY ANESTHESIOLOGIST [facility] 2024-07-01 01:15:13 Associated Order(s): Central Neuraxial Block Central Neuraxial Block Date/Time: 07/01/2024 12:18 AM Performed by: Yamil Solis MD Authorized by: Yamil Solis MD End Time: 07/01/2024 12:47 AM Reason for Block: OB request, Patient request, Labor analgesia, Surgical anesthesia and Post-op pain management Staff: Anesthesiologist: Yamil Solis MD Performed by: anesthesiologist Preanesthetic Checklist: patient identified, IV checked, risks and benefits explained, monitors and equipment checked, timeout performed, pre-op evaluation, site marked, anesthesia consent, ob/surgical consent approval and ob/surgical consent verified Procedure: Type of Neuraxial: Epidural Epidural Description: 1st attempt Sterility Prep cap, gloves, drape, hand hygiene and mask Sedation Level no sedation Patient Position: sitting Prep: Betadine and patient draped Monitoring: heart rate, continuous pulse ox, heart rate / toco and NIBP Location: lumbar (1-5) Lumbar: L3-L4 Approach: midline Technique: catheter and MILA saline Guidance with: landmark technique} Epidural/Spinal Sidney and/or Catheter: Epidural/Spinal Kit: Annmarie Needle Type: Tuohy Needle Gauge: 18 G Needle Length: 3.5 in (8.89 cm) Needle Insertion Depth: 7 Catheter Type: end hole Catheter Size: 19 G Catheter at Skin Depth: 11 Number of Attempts: 3 Test Dose: lidocaine 1.5% with epinephrine 1-to-200,000 Dose: 5 cc Catheter Securement Method: surgical tape and Tegaderm Assessment: Block Outcome: appropriate sensory block, successful block, patient satisfied and patient tolerated procedure well Procedure Assessment: patient tolerated procedure well with no complications Notes: Smooth and atraumatic, (+) Local, (+) STF AN-ANESTHESIOLOGY ANESTHESIOLOGIST [facility] 2024-06-30 11:21:44 Procedure(s): INSERT CERVICAL DILATOR Pre-Procedure Diagnose(s): 39 weeks gestation of ; GDM, class A2 Post-Procedure Diagnose(s): 39 weeks gestation of ; GDM, class A2 Dee bulb inserted in a sterile manner and inflated with 60 cc of normal saline without complications. Patient tolerated the procedure well. Trell Hagen MD #[id number] 06/30/2024 11:22 AM [facility] [employer] [facility] Notes Date/Time Note Provider Source 2024-08-01 09:30:00 Images from the original note were not included. Venipuncture collection performed by clean technique on the left anticubitus. Total of 1 attempts were made. Slight pressure and a bandage/dressing were applied to the site(s). The patient experienced no complications. The following specimens were processed according to instructions and sent to [facility] laboratories per lab order on 08/01/2024 : LT BLUE SST 1 RED LAV PPT DK GREEN (LiHep) DK GREEN (SodH) STOKES DK BLUE (K2) DK BLUE (S) ACD Blood Culture NIPT/NTD LOADED PT [address] [place], NO ISSUES. DRAW TIME: 1025, 1125 T [facility] [employer] 2024-08-01 09:30:00 Images from the original note were not included. Venipuncture collection performed by clean technique on the left anticubitus. Total of 1 attempts were made. Slight pressure and a bandage/dressing were applied to the site(s). The patient experienced no complications. The following specimens were processed according to instructions and sent to [facility] [employer] per lab order on 08/01/2024 : LT BLUE SST 1 RED LAV PPT DK GREEN (LiHep) DK GREEN (SodH) STOKES DK BLUE (K2) DK BLUE (S) ACD Blood Culture NIPT/NTD T [facility] [employer] [facility] 2024-08-01 09:30:00 Images from the original note were not included. Venipuncture collection performed by clean technique on the left anticubitus. Total of 1 attempts were made. Slight pressure and a bandage/dressing were applied to the site(s). The patient experienced no complications. The following specimens were processed according to instructions and sent to [facility] laboratories per lab order on 08/01/2024: LT BLUE SST 1 RED LAV PPT DK GREEN (LiHep) DK GREEN (SodH) STOKES DK BLUE (K2) DK BLUE (S) ACD Blood Culture NIPT/NTD Kimber Obregon [facility] 2024-07-10 08:00:51 Pt given printed and verbal discharge instructions regarding visit for wound check, encouraged hydration. 0 Prescriptions provided Discussed ibuprofen and to take with food to avoid GI distress. Pt verbalized understanding of instructions, pt awake alert oriented, resp reg unlabored, skin w/d, color appropriate for race, moves all ext well,pt encouraged to follow up with pcp and OB Advised to seek medical attention for new/prolonged/worsening of symptoms, Symptoms improved Awake, alert oriented, resp reg unlabored, skin w/d, pt leaving amb with steady gait, in no apparent distress. 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 Denies fever, chills, redness or any other problems. S/p 10 days ago. Denies abdominal pain or any other problems. BP 109/72 | Pulse 74 | Temp 37 ?C (98.6 ?F) (Oral) | Resp 16 | Ht 1.549 m (5' 1") | Wt 85 kg (187 lb 6.4 oz) | LMP 10/01/2023 | SpO2 97% | BMI 35.41 kg/m? Past Medical and Social History No past medical history on file. Tetanus received in last 5 years: Yes Childhood immunizations: Up-to-date Social History Tobacco Use Smoking status: Never Smokeless tobacco: Never Vaping Use Vaping status: Never Used Substance Use Topics Alcohol use: Not Currently Drug use: Never Past Surgical History Past Surgical History: Procedure Laterality Date SECTION N/A 07/02/2024 Surgeon: Trell Hagen MD; Location: [facility] OR LOCATION INSERT CERVICAL DILATOR 06/30/2024 Medications Medications - No data to display Allergies No Known Allergies Review of Systems Review of Systems Constitutional: Negative. HENT: Negative. Eyes: Negative. Respiratory: Negative. Cardiovascular: Negative. Gastrointestinal: Negative. Genitourinary: Negative. Musculoskeletal: Negative. Skin: Positive for wound. Neurological: Negative. Psychiatric/Behavioral: Negative. Endocrine: Endocrine negative Physical Exam BP 109/72 | Pulse 74 | Temp 37 ?C (98.6 ?F) (Oral) | Resp 16 | Ht 1.549 m (5' 1") | Wt 85 kg (187 lb 6.4 oz) | LMP 10/01/2023 | SpO2 97% | BMI 35.41 kg/m? Physical Exam Vitals and nursing note reviewed. Constitutional: General: She is not in acute distress. Appearance: She is well-developed and normal weight. She is not ill-appearing. HENT: Head: Normocephalic and atraumatic. Right Ear: External ear normal. Left Ear: External ear normal. Nose: Nose normal. No congestion or rhinorrhea. Mouth/Throat: Pharynx: No oropharyngeal exudate or posterior oropharyngeal erythema. Eyes: General: Right eye: No discharge. Left eye: No discharge. Conjunctiva/sclera: Conjunctivae normal. Pupils: Pupils are equal, round, and reactive to light. Cardiovascular: Rate and Rhythm: Normal rate and regular rhythm. Heart sounds: Normal heart sounds. No murmur heard. No friction rub. Pulmonary: Effort: Pulmonary effort is normal. No respiratory distress. Breath sounds: Normal breath sounds. No stridor. No wheezing or rhonchi. Abdominal: General: Bowel sounds are normal. There is no distension. Palpations: Abdomen is soft. There is no mass. Tenderness: There is no abdominal tenderness. Hernia: No hernia is present. Musculoskeletal: General: No swelling, tenderness, deformity or signs of injury. Normal range of motion. Cervical back: Normal range of motion and neck supple. No rigidity or tenderness. Skin: General: Skin is warm. Capillary Refill: Capillary refill takes less than 2 seconds. Coloration: Skin is not jaundiced or pale. Findings: No bruising or erythema. Neurological: General: No focal deficit present. Mental Status: She is alert and oriented to person, place, and time. Cranial Nerves: No cranial nerve deficit. Sensory: No sensory deficit. Motor: No weakness. Coordination: Coordination normal. Psychiatric: Mood and Affect: Mood normal. Behavior: Behavior normal. Thought Content: Thought content normal. Judgment: Judgment normal. Labs and Studies Lab Results - No data to display No orders to display Orders and Treatments No orders of the defined types were placed in this encounter. No orders of the defined types were placed in this encounter. Patient's Medications START taking these medications No medications on file CONTINUE taking these medications which have NOT CHANGED ACETAMINOPHEN 500 MG TABLET Take 2 tablets by mouth every 8 (eight) hours as needed for Pain. CEFDINIR 300 MG CAPSULE Take 1 capsule by mouth every 12 (twelve) hours for 10 days. DOCUSATE 100 MG CAPSULE Take 2 capsules by mouth once daily as needed for Constipation. FERROUS SULFATE 325 MG (65 MG IRON) TABLET Take 1 tablet by mouth in the morning. IBUPROFEN 800 MG TABLET Take 1 tablet by mouth every 8 (eight) hours as needed (pain). Take with food or milk. OXYCODONE 5 MG IMMEDIATE RELEASE TABLET Take 1 tablet by mouth every 6 (six) hours as needed (pain) for up to 7 days. Indications: acute pain POLYETHYLENE GLYCOL 3350 (MIRALAX) 17 GRAM/DOSE POWDER Take 17 g by mouth in the morning for 7 days. VITAMIN W/FA TABLET Take 1 tablet by mouth in the morning. SIMETHICONE 80 MG CHEWABLE TABLET Take 2 tablets by mouth in the morning and 2 tablets at noon and 2 tablets in the evening. START taking Modified Medications as Prescribed No medications on file STOP taking these medications No medications on file Procedures Procedures Evidence Care MDM & Notes Patient was evaluated for an emergency medical condition related to Wound Check (Post 07/02/2024) Imaging:Was not ordered Diagnosis/Impression as of 07/10/24 0754 Visit for wound check Abdominal wall seroma, initial encounter Medical Decision Making Amount and/or Complexity of Data Reviewed Discussion of management or test interpretation with external provider(s): Patient comes to the ED for evaluation of discharge from wound. On examination, no erythema or tenderness to the area. Wound looks clean, likely small seroma. The patient will f/u tomorrow with OBGYN. Advised to continue home medications and return to the ED if worsening of symptoms. She understands and agrees with the plan. Pulse Oximetry: is not hypoxic. Interpreted. Reassessment:stable Limitations to patient care and compliance: none. Plan & Summary: Iliana Macdonald is a 24 year old female presenting for complaint(s) listed within the note. Patient has been deemed stable for discharge. Follow up with providers listed below for further evaluation and management. Return precautions given if symptoms worsen as documented in the discharge instructions. History, physical exam findings, results of visit, diagnosis, medication regimens and plan of future care have been considered. Additional MDM may be found in the ED course. Vital signs were rechecked before final disposition and determined to be stable. Disposition & Follow Up ED Disposition ED Disposition Disch - Home Condition Stable Comment -- Patient's Medications START taking these medications No medications on file CONTINUE taking these medications which have NOT CHANGED ACETAMINOPHEN 500 MG TABLET Take 2 tablets by mouth every 8 (eight) hours as needed for Pain. CEFDINIR 300 MG CAPSULE Take 1 capsule by mouth every 12 (twelve) hours for 10 days. DOCUSATE 100 MG CAPSULE Take 2 capsules by mouth once daily as needed for Constipation. FERROUS SULFATE 325 MG (65 MG IRON) TABLET Take 1 tablet by mouth in the morning. IBUPROFEN 800 MG TABLET Take 1 tablet by mouth every 8 (eight) hours as needed (pain). Take with food or milk. OXYCODONE 5 MG IMMEDIATE RELEASE TABLET Take 1 tablet by mouth every 6 (six) hours as needed (pain) for up to 7 days. Indications: acute pain POLYETHYLENE GLYCOL 3350 (MIRALAX) 17 GRAM/DOSE POWDER Take 17 g by mouth in the morning for 7 days. VITAMIN W/FA TABLET Take 1 tablet by mouth in the morning. SIMETHICONE 80 MG CHEWABLE TABLET Take 2 tablets by mouth in the morning and 2 tablets at noon and 2 tablets in the evening. START taking Modified Medications as Prescribed No medications on file STOP taking these medications No medications on file Future Appointments Tomorrow Trell Hagen MD [facility] In 2 weeks Trell Hagen MD [facility] Diagnoses No diagnosis found. Disposition and Condition ED Disposition ED Disposition Disch - Home Condition Stable Comment -- Patient's Medications START taking these medications No medications on file CONTINUE taking these medications which have NOT CHANGED ACETAMINOPHEN 500 MG TABLET Take 2 tablets by mouth every 8 (eight) hours as needed for Pain. CEFDINIR 300 MG CAPSULE Take 1 capsule by mouth every 12 (twelve) hours for 10 days. DOCUSATE 100 MG CAPSULE Take 2 capsules by mouth once daily as needed for Constipation. FERROUS SULFATE 325 MG (65 MG IRON) TABLET Take 1 tablet by mouth in the morning. IBUPROFEN 800 MG TABLET Take 1 tablet by mouth every 8 (eight) hours as needed (pain). Take with food or milk. OXYCODONE 5 MG IMMEDIATE RELEASE TABLET Take 1 tablet by mouth every 6 (six) hours as needed (pain) for up to 7 days. Indications: acute pain POLYETHYLENE GLYCOL 3350 (MIRALAX) 17 GRAM/DOSE POWDER Take 17 g by mouth in the morning for 7 days. VITAMIN W/FA TABLET Take 1 tablet by mouth in the morning. SIMETHICONE 80 MG CHEWABLE TABLET Take 2 tablets by mouth in the morning and 2 tablets at noon and 2 tablets in the evening. START taking Modified Medications as Prescribed No medications on file STOP taking these medications No medications on file Future Appointments Tomorrow Trell Hagen MD [facility] In 2 weeks Trell Hagen MD [facility] [employer] is used frequently and may produce errors. Promptly contact for obvious discrepancies. Deisy Albert MD, FACEP, FAAEM [facility] of Emergency [facility] Internal Medicine [facility] #[id number] Deisy Albert MD 07/10/24 0753 [facility] 2024-07-06 02:34:23 Pt given printed and verbal discharge instructions regarding uti. Encouraged hydration, Prescriptions provided:omnicef, mirilax Discussed ibuprofen and to take with food to avoid GI distress. Discussed antibiotic therapy and to take until all completed unless adverse reaction occurs - if occurs, discontinue medication and follow up with pcp/seek medical attention Pt verbalized understanding of instructions, pt awake alert oriented, resp reg unlabored, skin w/d, color appropriate for race, moves all ext well,pt encouraged to follow up with pcp. Advised to seek medical attention for new/prolonged/worsening of symptoms, Symptoms improved No adverse reaction to meds given in ER noted upon discharge PIV d'cd, dressing to site, catheter in tact. Awake, alert oriented, resp reg unlabored, skin w/d, pt leaving amb with steady gait, in no apparent distress, accompanied by mother. Suha Pfeiffer RN [facility] 2024-07-05 23:43:29 Pt presents to the ED ambulatory with c/o incisional pain from a on 07/02/2024 Cachorro Saravia RN [facility] 2024-07-05 22:01:00 Regardin days pp 102 fever level 10 pain at c scetion site ----- Message from Laura Louie sent at 07/05/2024 10:01 PM CDT ----- Iliana Macdonald is a 24 year old female 3 days pp (c-sec) 102.0 fever at 9pm (oral), pain level 10 at incision sight/lower back x now would like to speak with nurse MoP number: [phone] Pastora Vines RN [facility] 2024-07-05 22:01:00 Adult Triage Assessment Last Clinic Visit: 06/30/24 OB for 39 weeks (C/s on 07/02) Primary Symptom: fever Onset / Duration: 1600 Location / Description: lower abdomen at incision and lower back Pain / Severity: 10/10 constant burning pain Associated Symptoms: difficulty breathing. Patient is able to walk with out feeling dizzy, but very painful to sit. Fever / Method: 102.0 f oral @ 2030 Hydration: drank a lot of water today, endorses burning and pain with urination. Treatment so far: oxycodone 5 mg @ 1800- no help, has not taken Ibuprofen Effect on ADL's: significant, patient is having severe pain and now difficulty breathing. LMP: C/S on 07/02/24 Pre-existing condition / Immunocompromised: per chart High-risk in third trimester 39 weeks gestation of Obesity in GDM, class A2 Positive GBS test Mild pre-eclampsia in third trimester Liveborn infant, of colon , born in hospital by delivery Endometritis Iliana Macdonald is a 24 year old female who calls with complaints of severe pain and fever. Denies cyanosis or rashes. Assessment and triage completed, per protocol patient should be evaluated in ED now. Patient verbalizes understanding and agrees to follow plan of care. Denies other questions at this time, call back warnings given. Pastora Vines RN [facility] Nurse Triage Reason for Disposition Difficulty breathing Protocols used: - [id number] [facility] 2024-07-05 22:01:00 Reviewed triage encounter. Patient seen in er. Tyron Khan RN 07/06/2024 10:15 AM Tyron Khan RN [facility] 2024-07-05 11:10:16 Images from the original note were not included. This note was copied from a baby's chart. Stopping Breast Milk Production Breast stimulation encourages milk production. The more milk is removed the body responds by making more milk. When the breast stays full it signals the body to stop making milk. Breast fullness and swelling can be painful. This is normal and may last 3- 4 days. Helpful tips to stop breast milk production Do not bind your breast. This can lead to plugged ducts, mastitis, and increased pain. Wear a supportive bra day and night. Nursing pads are helpful for leaking milk. Talk to your provider about over the counter pain relievers such as ibuprofen or acetaminophen to help relieve pain. Ice packs or cold cabbage leaves on the breast can help decrease swelling and pain. Use 3-4 times per day for 15-20 minutes. Drink when you are thirsty. Drinking less fluids does not help and can make you dehydrated. If your breasts become very uncomfortable express just enough milk to reduce the pressure. Call your healthcare provider Call your healthcare provider right away if you have any of the following: A fever or chills Extreme tiredness and body aches, as if you have the flu Burning or pain in one or both breasts Red streaks on a breast Hard or lumpy spots in one or both breasts A feeling of warmth or heat in one or both breasts It can take some women up to 10 days or longer for the breasts to stop making milk. Please contact your primary care provider for questions or concerns. If you have a fever over 101?F (38.3?C), pain and/or redness in a specific area of the breast, feel like you are coming down with the flu, it could be a sign of breast or other infection. It may be temporarily necessary to remove a majority of the milk from the breasts by hand expression or pumping to help the infection clear, along with the use of antibiotics. Contact your primary care provider. Thad ESTRADA, RN, IBCLC Thad Keane RN [facility] 2024-07-04 21:28:19 Problem: Falls, Risk of Goal: Absence of falls Outcome: Progressing as expected Problem: Infection Risk Goal: Absence of infection Outcome: Progressing as expected Problem: Pain Goal: Control of pain at or below patient's documented comfort goal Outcome: Progressing as expected Goal: Reduction in pain sensation Outcome: Progressing as expected Problem: Bleeding, Risk of Goal: Absence of impaired coagulation signs and symptoms Outcome: Progressing as expected Goal: Absence of active bleeding Outcome: Progressing as expected Problem: Discharge Planning Goal: Adequate for discharge Outcome: Progressing as expected Goal: Effective communication Outcome: Progressing as expected Problem: Discharge Planning - Goal: Adequate for discharge Outcome: Progressing as expected Goal: Mood stable Outcome: Progressing as expected Keara Neumann RN [facility] 2024-07-04 17:35:24 Problem: Falls, Risk of Goal: Absence of falls Outcome: Progressing as expected Problem: Infection Risk Goal: Absence of infection Outcome: Progressing as expected Problem: Pain Goal: Control of pain at or below patient's documented comfort goal Outcome: Progressing as expected Goal: Reduction in pain sensation Outcome: Progressing as expected Problem: Bleeding, Risk of Goal: Absence of impaired coagulation signs and symptoms Outcome: Progressing as expected Goal: Absence of active bleeding Outcome: Progressing as expected Problem: Discharge Planning Goal: Adequate for discharge Outcome: Progressing as expected Goal: Effective communication Outcome: Progressing as expected Problem: Discharge Planning - Goal: Adequate for discharge Outcome: Progressing as expected Goal: Mood stable Outcome: Progressing as expected Deann Henriquez RN [facility] 2024-07-03 19:52:55 Problem: Falls, Risk of Goal: Absence of falls Outcome: Progressing as expected Problem: Infection Risk Goal: Absence of infection Outcome: Progressing as expected Problem: Pain Goal: Control of pain at or below patient's documented comfort goal Outcome: Progressing as expected Goal: Reduction in pain sensation Outcome: Progressing as expected Problem: Bleeding, Risk of Goal: Absence of impaired coagulation signs and symptoms Outcome: Progressing as expected Goal: Absence of active bleeding Outcome: Progressing as expected Problem: Discharge Planning Goal: Adequate for discharge Outcome: Progressing as expected Goal: Effective communication Outcome: Progressing as expected Problem: Discharge Planning - Goal: Adequate for discharge Outcome: Progressing as expected Goal: Mood stable Outcome: Progressing as expected Varsha Garza RN [facility] 2024-07-03 19:00:06 Images from the original note were not included. [facility] Clinical Pharmacist Protocol Patient Name MITCHEL Sex Unit Iliana Macdonald [id number] female [id number]/[id number]-M Serum Creatinine CrCl Actual Weight [place] Wt CREATININE Date/Time Value Ref Range Status 07/02/2024 08:40 AM 0.55 0.50 - 1.04 mg/dL Final Estimated Creatinine Clearance: 165.8 mL/min (by C-G formula based on SCr of 0.55 mg/dL). Wt Readings from Last 1 Encounters: 06/30/24 94.8 kg (209 lb) [place] body weight: 47.8 kg (105 lb 6.1 oz) Adjusted ideal body weight: 66.6 kg (146 lb 13.2 oz) Weight Based Dosing Antimicrobial Note Medication: Gentamicin Dosing weight was changed from Actual Body Weight (ABW) to Adjusted Body Weight (AdjBW) Saima Llanes RPH, DAVID [facility] Department of Pharmacy - [facility] Phone: ADC: [phone] Saima Llanes RPH [facility] 2024-07-03 18:32:39 Problem: Falls, Risk of Goal: Absence of falls Outcome: Progressing as expected Problem: Infection Risk Goal: Absence of infection Outcome: Not progressing as expected-- fever noted Problem: Pain Goal: Control of pain at or below patient's documented comfort goal Outcome: Progressing as expected Goal: Reduction in pain sensation Outcome: Progressing as expected Problem: Bleeding, Risk of Goal: Absence of impaired coagulation signs and symptoms Outcome: Progressing as expected Goal: Absence of active bleeding Outcome: Progressing as expected Problem: Discharge Planning Goal: Adequate for discharge Outcome: Progressing as expected Goal: Effective communication Outcome: Progressing as expected Problem: Discharge Planning - Goal: Adequate for discharge Outcome: Progressing as expected Goal: Mood stable Outcome: Progressing as expected Jimena Callejas RN [facility] 2024-07-02 20:20:58 Problem: Falls, Risk of Goal: Absence of falls Outcome: Progressing as expected Problem: Infection Risk Goal: Absence of infection Outcome: Progressing as expected Problem: Pain Goal: Control of pain at or below patient's documented comfort goal Outcome: Progressing as expected Goal: Reduction in pain sensation Outcome: Progressing as expected Problem: Bleeding, Risk of Goal: Absence of impaired coagulation signs and symptoms Outcome: Progressing as expected Goal: Absence of active bleeding Outcome: Progressing as expected Problem: Discharge Planning Goal: Adequate for discharge Outcome: Progressing as expected Goal: Effective communication Outcome: Progressing as expected Problem: Discharge Planning - Goal: Adequate for discharge Outcome: Progressing as expected Goal: Mood stable Outcome: Progressing as expected [facility] 2024-07-02 17:06:48 Problem: Falls, Risk of Goal: Absence of falls Outcome: Progressing as expected Problem: Infection Risk Goal: Absence of infection Outcome: Progressing as expected Problem: Pain Goal: Control of pain at or below patient's documented comfort goal Outcome: Progressing as expected Goal: Reduction in pain sensation Outcome: Progressing as expected Problem: Bleeding, Risk of Goal: Absence of impaired coagulation signs and symptoms Outcome: Progressing as expected Goal: Absence of active bleeding Outcome: Progressing as expected Problem: Discharge Planning Goal: Adequate for discharge Outcome: Progressing as expected Goal: Effective communication Outcome: Progressing as expected Problem: Discharge Planning - Goal: Adequate for discharge Outcome: Progressing as expected Goal: Mood stable Outcome: Progressing as expected [facility] 2024-07-02 11:58:02 Problem: Intrapartum process (including labor pain) Goal: Absence of or reduction of complications of labor Outcome: Resolved Goal: Able to cope with pain Outcome: Resolved Goal: Adequate to move to next level of care Outcome: Resolved Goal: Reduction in pain sensation Outcome: Resolved [facility] 2024-07-02 11:53:25 Delivery Date: 07/02/2024 Delivery Time: 10:23 AM DELIVERY BY SECTION Date of Service: : 07/02/2024 at 10:23 AM Admitted for: induction at 39 wks, Primary Lower uterine tranverse section with no extension, no BTL, Pfannenstiel, Closed with suture, EBL 500 cc, No complications, Findings: None Delivery Summary [place] Sex: male Weight: 3470 g 1 Minute 5 Minute 10 Minute Totals: 2 6 9 Primary Indication: Iliana Macdonald is a 24 year old female G1 @ 39w2d admitted for induction. complicated with A2DM. The patient was taken to the operating room for a primary section due to: intolerance of labor remote from delivery, SVE 5 cm. Procedures: Primary Lower uterine tranverse section with no extension Specimens Removed: Placenta Surgeon: Trell Hagen MD Report: Prophylactic antibiotic, patient received penicillin intrapartum. Azithromycin was given in OR. After arrival to the operating room patient was placed in the supine position with left lateral tilt after dosing of epidural anesthesia. Laparotomy A pfannenstiel incision was made through the anterior abdominal wall with #10 scalpel. The incision was extended sharply with the #10 scalpel through the subcutaneous tissue to the level of fascia. The fascia was entered sharply with a #10 scalpel (Pfannenstiel) in the midline and extended in semi-elliptical fashion with Calle scissor. The underlying muscles were dissected off the overlying fascia by grasping the superior aspect of fascia with two wily clamps and blunt dissection was used along the midline. The fascia was further from rectus muscle with Calle scissor and/or cautery. In similar fashion, the lower aspect of fascia was also grsaped with two Wily clamps and both blunt and sharp dissection was used to separate fascia from rectus muscle. The rectus muscles were in the midline bluntly with digits. The peritoneum was then entered bluntly. The peritoneal incision was then extended superiorly and inferiorly under direct visualization with care being taken to avoid bladder and bowel. No adhesions were noted. The peritoneal incision was enlarged bluntly by lateral traction from the surgeon's and certified registered dental assistant's hand. Delivery A bladder flap was developed by grasping with Czech forcep and enter with Metzenbaun scissor. Then sharp and blunt dissection with Metzenbaum scissor and fingers were performed. A low transverse hysterotomy was made then with #10 scalpel and extended laterally and cephalad with fingers in a low transverse fashion with Manu Perdomo technique with care being taken to avoid injury to the fetus. The amniotic (membranes) were then entered, and the amniotic fluid was noted to be clear . The head was delivered manually without aid of vaginal hand. The head was flexed and delivered through the hysterotomy incision in a non-traumatic fashion with aid of fundal pressure applied by the special education assistant surgeon . The body was delivered with traction on the head along with fundal pressure. After delivery of body-bulb suction was performed from oropharynx and nostril with removal of clear amniotic fluid. Fetus was delivered in cephalic presentation. With delivery the baby, no extension was noted. Delayed cord clamping was performed for 30-60 seconds. Placenta was delivered spontaneously with steady traction on cord and manual separation of placenta from uterine wall. Closure Uterine cavity was cleaned after placental delivery with lap sponge x 2. The hysterotomy was closed in one layer with stitches using 1-0 Monocryl with continuous locking stitches. Hemostasis was achieved as needed with electrocautery. The ovaries/tubes/uterine surface were evaluated. They were found to be normal. Rectus muscle was re-approximated with 2-0 Monocryl. Fascia was closed with running stitches using 0-Biosyn . Hemostasis was checked for and found to be adequate. The subcutaneous tissue was irrigated and hemostasis was achieved where needed with electrocautery. The skin was then closed with subcutaneous stitches using 3-0 Vicryl sutures. The incision was cleaned and covered with a compression bandage and the procedure considered to be complete at this time. Intraoperative Complications: None EBL: 500 Uterotonics: 30 units of pitocin mixed with 500 cc of LR and tranexamic acid x 1 Disposition: The patient tolerated the procedure well. She was recovered in the Labor and Delivery Room with routine care in stable condition, with a contracted uterus and normal transvaginal bleeding. The was sent to [facility]. Trell Hagen MD 07/02/2024 12:00 PM [facility] 2024-07-02 05:11:29 Problem: Intrapartum process (including labor pain) Goal: Absence of or reduction of complications of labor Outcome: Progressing as expected Goal: Able to cope with pain Outcome: Progressing as expected Goal: Adequate to move to next level of care Outcome: Progressing as expected Goal: Reduction in pain sensation Outcome: Progressing as expected Problem: Falls, Risk of Goal: Absence of falls Outcome: Progressing as expected Problem: Infection Risk Goal: Absence of infection Outcome: Progressing as expected Problem: Pain Goal: Control of pain at or below patient's documented comfort goal Outcome: Progressing as expected Goal: Reduction in pain sensation Outcome: Progressing as expected Problem: Bleeding, Risk of Goal: Absence of impaired coagulation signs and symptoms Outcome: Progressing as expected Goal: Absence of active bleeding Outcome: Progressing as expected Problem: Discharge Planning Goal: Adequate for discharge Outcome: Progressing as expected Goal: Effective communication Outcome: Progressing as expected Tejal Perez RN [facility] 2024-07-01 07:19:17 Problem: Intrapartum process (including labor pain) Goal: Absence of or reduction of complications of labor Outcome: Progressing as expected Goal: Able to cope with pain Outcome: Progressing as expected Goal: Adequate to move to next level of care Outcome: Progressing as expected Goal: Reduction in pain sensation Outcome: Progressing as expected Problem: Falls, Risk of Goal: Absence of falls Outcome: Progressing as expected Problem: Infection Risk Goal: Absence of infection Outcome: Progressing as expected Problem: Pain Goal: Control of pain at or below patient's documented comfort goal Outcome: Progressing as expected Goal: Reduction in pain sensation Outcome: Progressing as expected Problem: Bleeding, Risk of Goal: Absence of impaired coagulation signs and symptoms Outcome: Progressing as expected Goal: Absence of active bleeding Outcome: Progressing as expected Problem: Discharge Planning Goal: Adequate for discharge Outcome: Progressing as expected Goal: Effective communication Outcome: Progressing as expected Darlene Booth RN [facility] 2024-07-01 01:09:50 Name/ MRN / Age / Gender: Iliana Macdonald, [id number] 24 year old female BMI: Estimated body mass index is 39.64 kg/m? as calculated from the following: Height as of this encounter: 1.549 m (5' 1"). Weight as of 06/29/24: 95.2 kg (209 lb 12.8 oz). Allergies: Patient has no known allergies. Last Vitals: BP Readings from Last 1 Encounters: 07/01/24 136/74 Pulse Readings from Last 1 Encounters: 07/01/24 96 SpO2 Readings from Last 1 Encounters: 07/01/24 99% Date of Surgery: Surgeon: * Surgery not found * Procedure: CENTRAL NEURAXIAL BLOCK OR Location: [place] ANESTHESIA OUT OF OR - OR LOCATION Anesthesia Preop Eval (physical exam) Anesthesia Preop: [id number] and Chart Review PONV Risk Factors: female and non-smoker Anesthesia History Anesthesia History Negative Previous Anesthetics/Airways Cardiovascular Negative Cardiac ROS Pulmonary Negative Pulmonary ROS Neuro/Musculoskeletal (+) Obesity GI/Hepatic Negative GI/Hepatic ROS Hematology Negative Hematology ROS Renal Negative Renal ROS Skin (+) Current IV access and 18g Endo/Other Comments: Gestational Diabetes (+) Diabetes Mellitus and Type 2 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 Hold on DOS. Phentermine: Alert [facility] anesthesiologist SGLT2 Inhibitors: "gliflozins" to be held for 3 days prior to elective surgeries GLP1 Agonosit: stop 7 days prior to surgery MAC Cases: Continue taking GLORIA inhibitors and ARBs ASA Classification ASA: 2 and emergent Labs: Chemistry 06/08/2024 CBC 06/30/2024 134 (L) 105 5 (L) 159 (H) 7.86 10.6 (L) 196 3.8 17 (L) 0.47 (L) 32.1 (L) eGFR: 136.5 Date: 06/08/2024 ANC: 5.61 Date: 06/30/2024 LFTs 06/08/2024 Coags AST: 43 (H) AP: 156 (H) Prot: 6.9 Ca: 8.9 PT: - Date: - ALT: 18 T Mamadou: 0.6 Alb: 3.5 PTT: - Date: - PO4: - Date: - INR: - Date: - Cardiac Endocrine & other pBNP: - Date: - A1C: - Date: - Trop I: - Date: - POCT A1C: - Date: - CK: - Date: - TSH: - Date: - CKMB: - Date: - FT4: - Date: - LDL: - Date: - Lact: - Date: - Procal: - Date: - Respiratory -|-|-|-|- D-dimer: - ABG Date: - Date: - Miscellaneous Type and Screen: O Positive Antibody: Negative Date: 06/30/2024 POCT : - Date: - Current Medications: No outpatient medications have been marked as taking for the 06/30/24 encounter (Hospital Encounter). Previous Surgeries: Past Surgical History: Procedure Laterality Date INSERT CERVICAL DILATOR 06/30/2024 Anesthesia Physical Exam General alert and oriented x 3 Neuro/Psych neurological Dental no notable dental hx Abdominal (+) obesity and gravid Airway Mallampati score:III TM distance:> 5 cm NECK: thick Neck ROM: full Mouth opening:small (+) Normal facies Extremity Normal extremity Pulmonary pulmonary exam normal Other Cardiovascular cardiovascular exam normal Anesthesia Plan ASA Status: 2 emergent Plan discussed during pre-op evaluation: Epidural, Spinal, CSE, IT Catheter and General Anesthetic plan on DOS: Epidural Anesthesia plan discussed with: patient or brand representative Post-Operative Analgesia: routine analgesia & antiemetics Recovery Plan: LDR Additional comments: [facility] 2024-06-30 19:34:47 Problem: Intrapartum process (including labor pain) Goal: Absence of or reduction of complications of labor Outcome: Progressing as expected Goal: Able to cope with pain Outcome: Progressing as expected Goal: Adequate to move to next level of care Outcome: Progressing as expected Goal: Reduction in pain sensation Outcome: Progressing as expected Problem: Falls, Risk of Goal: Absence of falls Outcome: Progressing as expected Problem: Infection Risk Goal: Absence of infection Outcome: Progressing as expected Problem: Pain Goal: Control of pain at or below patient's documented comfort goal Outcome: Progressing as expected Goal: Reduction in pain sensation Outcome: Progressing as expected Problem: Bleeding, Risk of Goal: Absence of impaired coagulation signs and symptoms Outcome: Progressing as expected Goal: Absence of active bleeding Outcome: Progressing as expected Problem: Discharge Planning Goal: Adequate for discharge Outcome: Progressing as expected Goal: Effective communication Outcome: Progressing as expected [facility] 2024-06-30 18:37:44 Problem: Intrapartum process (including labor pain) Goal: Absence of or reduction of complications of labor Outcome: Progressing as expected Goal: Able to cope with pain Outcome: Progressing as expected Goal: Adequate to move to next level of care Outcome: Progressing as expected Goal: Reduction in pain sensation Outcome: Progressing as expected Problem: Falls, Risk of Goal: Absence of falls Outcome: Progressing as expected Problem: Infection Risk Goal: Absence of infection Outcome: Progressing as expected Problem: Pain Goal: Control of pain at or below patient's documented comfort goal Outcome: Progressing as expected Goal: Reduction in pain sensation Outcome: Progressing as expected Problem: Bleeding, Risk of Goal: Absence of impaired coagulation signs and symptoms Outcome: Progressing as expected Goal: Absence of active bleeding Outcome: Progressing as expected Problem: Discharge Planning Goal: Adequate for discharge Outcome: Progressing as expected Goal: Effective communication Outcome: Progressing as expected [facility] 2024-06-30 14:36:01 Name/ MRN / Age / Gender: Iliana Macdonald, [id number] 24 year old female BMI: Estimated body mass index is 39.64 kg/m? as calculated from the following: Height as of this encounter: 1.549 m (5' 1"). Weight as of 06/29/24: 95.2 kg (209 lb 12.8 oz). Allergies: Patient has no known allergies. Last Vitals: BP Readings from Last 1 Encounters: 06/30/24 110/73 Pulse Readings from Last 1 Encounters: 06/30/24 84 SpO2 Readings from Last 1 Encounters: 06/30/24 98% Date of Surgery: Surgeon: * Surgery not found * Procedure: LABOR CONSULT OR Location: * No surgery found * Anesthesia Preop Eval (physical exam) Anesthesia Preop: [id number] PONV Risk Factors: female and non-smoker Anesthesia History Anesthesia History Negative Previous Anesthetics/Airways Cardiovascular Negative Cardiac ROS Pulmonary Negative Pulmonary ROS Neuro/Musculoskeletal (+) Obesity GI/Hepatic Negative GI/Hepatic ROS Hematology Negative Hematology ROS Renal Negative Renal ROS Skin (+) Current IV access and 18g Endo/Other Comments: Gestational Diabetes (+) Diabetes Mellitus 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 Hold on DOS. Phentermine: Alert [facility] anesthesiologist SGLT2 Inhibitors: "gliflozins" to be held for 3 days prior to elective surgeries GLP1 Agonosit: stop 7 days prior to surgery MAC Cases: Continue taking GLORIA inhibitors and ARBs ASA Classification ASA: 2 Labs: Chemistry 06/08/2024 CBC 06/30/2024 134 (L) 105 5 (L) 159 (H) 7.86 10.6 (L) 196 3.8 17 (L) 0.47 (L) 32.1 (L) eGFR: 136.5 Date: 06/08/2024 ANC: 5.61 Date: 06/30/2024 LFTs 06/08/2024 Coags AST: 43 (H) AP: 156 (H) Prot: 6.9 Ca: 8.9 PT: - Date: - ALT: 18 T Mamadou: 0.6 Alb: 3.5 PTT: - Date: - PO4: - Date: - INR: - Date: - Cardiac Endocrine & other pBNP: - Date: - A1C: - Date: - Trop I: - Date: - POCT A1C: - Date: - CK: - Date: - TSH: - Date: - CKMB: - Date: - FT4: - Date: - LDL: - Date: - Lact: - Date: - Procal: - Date: - Respiratory -|-|-|-|- D-dimer: - ABG Date: - Date: - Miscellaneous Type and Screen: O POSITIVE Antibody: Negative Date: 06/30/2024 POCT : - Date: - Current Medications: No outpatient medications have been marked as taking for the 06/30/24 encounter (Hospital Encounter). Previous Surgeries: No past surgical history on file. Anesthesia Physical Exam General alert and oriented x 3 Neuro/Psych neurological Dental no notable dental hx Abdominal (+) obesity and gravid Airway Mallampati score:III TM distance:> 5 cm NECK: thick Neck ROM: full Mouth opening:small Extremity Normal extremity Pulmonary pulmonary exam normal Other Cardiovascular cardiovascular exam normal Anesthesia Plan ASA Status: 2 Plan discussed during pre-op evaluation: Epidural Anesthetic plan on DOS: Epidural Anesthesia plan discussed with: patient or brand representative Post-Operative Analgesia: routine analgesia & antiemetics Recovery Plan: LDR Additional comments: NACR-NURSE ESTIMATOR LUMBER,CERTIFIED REGISTERED NURSE ESTIMATOR LUMBER [facility] 2024-06-29 09:15:00 Images from the original note were not included. Age: [age] year old GA: 38w6d Doing well without concerns A2DM -Appropriate interval growth on 06/23/2024 ultrasound. EFW 6 pounds 11 ounces, 35 percentile. -Glucose log reviewed, not controlled -Currently on metformin 500 mg twice daily. Continue -NST reactive and reassuring -Induction scheduled for 06/30/2024 at 39 weeks unless clinically indicated otherwise Labor precautions and daily kick counts given Follow-up in 4 to 6 weeks for visit [facility] 2024-06-27 09:00:00 Age: [age] year old GA: 38w4d Here for NST only A2 DM -NST reactive and reassuring -Daily kick counts -Follow-up on Thu for NST [facility] 2024-06-23 09:00:00 Age: [age] year old GA: 38w0d Here for NST only A2 DM -NST reactive and reassuring -Daily kick counts -Follow-up on Thursday for NST [facility] 2024-06-22 10:45:00 Images from the original note were not included. Age: [age] year old GA: 37w6d Doing well without concerns Received record -12/21/2023: Panorama low risk male; Horizon negative A2DM -Growth scan ordered, not scheduled yet. Will have staff assist -Glucose log reviewed, not controlled -Discussed metformin. Metformin 500 mg twice daily ordered. -Will start twice weekly NST -Induction scheduled for 06/30/2024 at 39 weeks unless clinically indicated otherwise GBS positive Labor precautions and daily kick counts given Return to clinic for NST RTC in 1 wk for PN/glucose log review [facility] 2024-06-22 09:15:00 Images from the original note were not included. Venipuncture collection performed by clean technique on the left anticubitus. Total of 1 attempts were made. Slight pressure and a bandage/dressing were applied to the site(s). The patient experienced no complications. The following specimens were processed according to instructions and sent to [facility] laboratories per lab order on 06/22/2024 : LT BLUE SST RED LAV 1 PPT DK GREEN (LiHep) DK GREEN (SodH) STOKES DK BLUE (K2) DK BLUE (S) ACD Blood Culture NIPT/NTD [facility] 2024-06-17 10:13:49 Received record -12/21/2023: Panorama low risk male; Horizon negative Trell Hagen MD 06/17/2024 10:14 AM [facility] 2024-06-17 07:33:31 Medical Records received from [facility] and placed on provider's desk for review and signature. All Wiseman [facility] 2024-06-15 10:45:00 Age: [age] year old GA: 36w6d Doing well without concerns Received record from [facility] -05/20/2024: Hemoglobin 11.1, platelet 269, 3-hour GTT abnormal (187/220/184/177) -LMP 10/01/2023; JAIMEE 07/07/2024 -Ultrasound on 01/07/2024: 13 weeks and 3 days, JAIMEE 07/11/2024. - Final JAIMEE 07/07/2024 -05/03/2024: 1 hour 147, RPR nonreactive, HIV nonreactive -01/21/2024: Maternal serum AFP negative -12/23/2023: Hemoglobin 12.5, platelets 239, O+/IAT negative, rubella immune, hepatitis B surface antigen nonreactive, RPR nonreactive, HIV nonreactive, hepatitis C nonreactive, VZV immune, UDS negative, TSH within normal limits, 1 hour GTT 172 -12/25/2023: Pap negative with positive HPV (HPV 16/18 negative) -12/30/2023: Horizon negative -Ultrasound on 03/03/2024: Placenta fundal anterior, 21 weeks and 1 day, JAIMEE 07/13/2024. No obvious abnormalities - Panorama results not in record. Will try to obtain. GDM -diabetic teaching done today. Growth scan ordered, not scheduled yet. Will have staff assist -Follow-up in 1 week for glucose log review This reviews what Dr. Hagen talked about at your 36 week talk: 1. Go to Labor and Delivery when your contractions are 5-7 minutes apart and you have been able to time them for an hour. If you live more than 30 minutes from the hospital, then go when they are 10 minutes apart and you have been able to time them for an hour. 2. BUT, there are 4 reasons to go to Labor and Delivery REGARDLESS of what else is happening, whether you are ro or not: 1. If your water breaks - - - it may be a gush or a constant trickle. If you are not sure, always come in to be checked. 2. Bleeding like your period. 3. If your baby's movements are less than 10 in an hour. If you are concerned this might be the case, drink a tall glass of cold fluids, lay down on your side on the couch or your bed and see how long it takes to note 10 movements - if less than 10, this needs to be evaluated immediately. 4. Contractions or Pain that is continuous. Normal labor contractions last only 45 seconds - 1 minute. Cephalic presentation GC/CT and GBS obtained, CBC ordered Zika precautions reviewed Contraception PP: Condoms Delivery consent signed today RTC in 1 wk for PN/glucose log review [facility] 2024-06-10 14:12:55 LM on to return call and also advise her that we send med list through [employer]. ROSINA LESLIE RN 06/10/2024 2:13 PM Rosina Leslie RN [facility] 2024-06-10 09:29:56 XO [employer] message sent with safe medication list. Tyron Khan RN 06/10/2024 9:30 AM Tyron Khan RN [facility] 2024-06-10 09:20:36 From encounter 06/08. Patient returning a missed call. No back pain, but experiencing congestion, a sore throat, and a cough. Sonia Mackey [facility] 2024-06-10 09:14:09 Attempted to contact patient. No answer, VM left informing patient to reach out to clinic with any concerns/questions via phone or brand eins [employer]. Tyron Khan RN 06/10/2024 9:16 AM Tyron Khan RN [facility] 2024-06-08 13:21:22 Lm on Vm for pt to return call. ROSINA LESLIE RN 06/08/2024 1:21 PM Rosina Leslie RN [facility] 2024-06-08 12:03:39 Pts sister Veronica Macdonald called states pt 35wks preg went to ER today 4am was DX with COVID. But state pt is feeling pressure and back pain and requesting for recommendation. Would like a call back from the nurse. Junie Veronica [facility] 2024-06-08 08:02:41 Patient discharged to home. Patient given printed and verbal discharge instructions regarding diagnosis. Instructed to follow up with PCP. Patient verbalized understanding of instructions. Patient awake, alert, oriented, respirations even and unlabored, skin warm and dry, color appropriate for race. No adverse reaction to meds given in ER noted upon discharge. PIV removed. Discussed medications. Advised to seek medical attention for new/prolonged/worsening of symptoms, patient ambulated from unit with steady gait in no apparent distress. Mauri Phillips RN [facility] - [facility] 2024-06-08 07:36:00 [facility] ED Transfer of Care Note. Off-going Physician:Romi Time of Transfer of Care: 7:00 AM Summary: Iliana Macdonald is a 24 year old female presenting with chief complaint of cough, congestion, fever. Pending prior to disposition: Labs and Reevaluation Current interventions: Medications acetaminophen (TYLENOL) tablet 975 mg (975 mg Oral Given 06/08/24637) NaCl 0.9% (NS) bolus infusion 1,000 mL (1,000 mL IV Piggyback New Bag 06/08/24638) dextromethorphan-guaifenesin (ROBITUSSIN DM) 10-100 mg/5 mL solution 10 mL (10 mL Oral Given 06/08/24638) Results: Labs Reviewed URINALYSIS - Abnormal; Notable for the following components: Result Value LEUK WAYNE Small (*) SQ EPITH 2 (*) All other components within normal limits CBC WITH DIFF - Abnormal; Notable for the following components: RBC 3.43 (*) HGB 10.1 (*) HCT 30.6 (*) GRAN MAT x10 3 (ANC) 8.55 (*) IMM GRAN x10 3 0.14 (*) LYMPH x10 3 0.38 (*) All other components within normal limits COMP. METABOLIC PANEL (90619) - Abnormal; Notable for the following components: NA 134 (*) CO2 TOTAL 17 (*) BUN 5 (*) GLUCOSE 159 (*) CREATININE 0.47 (*) ALK PHOS 156 (*) AST(SGOT) 43 (*) All other components within normal limits INFLUENZA A/B RSV COVID NAAT - Abnormal; Notable for the following components: SARS-CoV-2 NAAT Positive (*) All other components within normal limits RAPID STREP SCREEN FOR GROUP A - Normal Narrative: ID NOW Strep A 2 utilizes isothermal nucleic acid amplification technology for the qualitative detection of Group A Strep bacterial nucleic acids. A positive result indicates the presence of Strep A nucleic acid. Negative results do not preclude infection with Group A Strep and should not be the sole basis of a patient treatment decision. Invalid result: Unable to generate a valid test result. A throat culture is reflexed on specimens with either an invalid or negative test result. THROAT CULTURE LAB ONLY COVID INTERPRETATION LAB ONLY SARS-COV-2 SEQUENCING No orders to display Procedures: Procedures Additional Notes: Diagnosis/Impression as of 06/08/24 0754 Fever in adult Third trimester COVID-19 Medical Decision Making The patient was signed out pending reeval and results of labs. Her labs are unremarkable. UA shows no infection. Strep is negative. Viral panel is positive for covid. Her HR has improved as has her temperature. She was given a list of medications that are safe to use in . She remains stable here in the EC and is ok for dc home with pcp f/u. Problems Addressed: COVID-19: acute illness or injury Fever in adult: acute illness or injury Third trimester : self-limited or minor problem Amount and/or Complexity of Data Reviewed Labs: Decision-making details documented in ED Course. Risk OTC drugs. Disposition: Discharged Home Social Determinants of Health: None ED Disposition ED Disposition Disch - Home Condition Stable Comment -- T [facility] 2024-06-08 06:17:12 Summary: Triage CC: patient with complaints of upper abdominal pain that started at 0230, cough, congestion and temperature of 100F that started yesterday. Patient is 35 weeks with her first baby. Dr. 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 Patient is 35 weeks [address] her first baby. Dr. Hagen PMHx: none PSH:none MEDS: LMP: 10/06/2023 Tetanus: UTD Awake, alert, oriented, resp reg unlabored, skin warm, color appropriate for race, moves all ext without difficulty, amb with out assistance Appears in no distress History provided by: Patient manager hospital used: No Fever Max temp prior to arrival: 100.1 Temp source: Oral Severity: Mild Onset quality: Gradual Duration: 4 hours Timing: Constant Chronicity: New Relieved by: None tried Worsened by: Nothing Ineffective treatments: None tried Associated symptoms: chills, congestion, cough, rhinorrhea and sore throat Associated symptoms: no chest pain, no confusion, no dysuria, no ear pain, no headaches, no myalgias, no nausea, no rash and no vomiting Associated symptoms comment: Epigastric pain Risk factors: no contaminated food, no contaminated water, no hx of cancer, no immunosuppression, no occupational exposure, no recent sickness, no recent travel and no sick contacts Risk factors comment: at 35 weeks Past Medical History/Immunizations: No past medical history on file. Tetanus received in last 5 years: Yes Allergies: No Known Allergies Past Social History: Tobacco Use Never smoked or used smokeless tobacco. Vaping Use Never used Alcohol Use Not Currently. Drug Use Never. Sexual Activity Not currently sexually active; Partners: Male. Past Surgical History: No past surgical history on file. Review of Systems: Review of Systems Constitutional: Positive for chills and fever. Negative for activity change, appetite change, diaphoresis and fatigue. HENT: Positive for congestion, rhinorrhea, sore throat and voice change. Negative for ear discharge, ear pain and trouble swallowing. Eyes: Negative for photophobia, pain, discharge and redness. Respiratory: Positive for cough. Negative for chest tightness, shortness of breath and wheezing. Cardiovascular: Negative for chest pain, palpitations and leg swelling. Gastrointestinal: Positive for abdominal pain. Negative for abdominal distention, blood in stool, constipation, nausea and vomiting. Genitourinary: Negative for dysuria, urgency, polyuria, frequency, hematuria and flank pain. Musculoskeletal: Negative for arthralgias, joint swelling, myalgias and neck stiffness. Skin: Negative for color change, rash and wound. Neurological: Negative for dizziness, seizures, syncope, facial asymmetry, weakness, light-headedness, numbness and headaches. Psychiatric/Behavioral: Negative for agitation, confusion, hallucinations and self-injury. The patient is not nervous/anxious. Hematological: Negative for adenopathy and cold intolerance. Does not bruise/bleed easily. Endocrine: Negative for cold intolerance, polydipsia and polyuria. Physical Exam: ED Triage Vitals [06/08/24 0622] Weight 94.5 kg (208 lb 6.4 oz) Actual or estimated Actual Height 1.549 m (5' 1") BP (!) 144/74 Pulse 129 Resp 28 Temp 38.1 ?C (100.6 ?F) Temp source Oral SpO2 98 % Measured on Room air Physical Exam Vitals and nursing note reviewed. Constitutional: General: She is awake. She is not in acute distress. Appearance: She is well-developed and well-groomed. She is not ill-appearing, toxic-appearing or diaphoretic. Comments: Febrile, Tachycardic, with signs of upper respiratory infection, in no distress HENT: Head: Normocephalic and atraumatic. Right Ear: External ear normal. Left Ear: External ear normal. Nose: Mucosal edema, congestion and rhinorrhea present. Mouth/Throat: Pharynx: Pharyngeal swelling and posterior oropharyngeal erythema present. No oropharyngeal exudate or uvula swelling. Tonsils: No tonsillar exudate. Eyes: General: No scleral icterus. Right eye: No discharge. Left eye: No discharge. Conjunctiva/sclera: Conjunctivae normal. Pupils: Pupils are equal, round, and reactive to light. Neck: Thyroid: No thyromegaly. Vascular: No JVD. Trachea: No tracheal deviation. Cardiovascular: Rate and Rhythm: Regular rhythm. Tachycardia present. Pulses: Radial pulses are 2+ on the right side and 2+ on the left side. Dorsalis pedis pulses are 2+ on the right side and 2+ on the left side. Posterior tibial pulses are 2+ on the right side and 2+ on the left side. Heart sounds: Normal heart sounds. No murmur heard. No friction rub. No gallop. Pulmonary: Effort: Pulmonary effort is normal. No tachypnea, accessory muscle usage or respiratory distress. Breath sounds: Normal breath sounds. No stridor, decreased air movement or transmitted upper airway sounds. No decreased breath sounds, wheezing, rhonchi or rales. Chest: Chest wall: No tenderness. Abdominal: General: Abdomen is protuberant. Bowel sounds are normal. There is no distension. Palpations: Abdomen is soft. There is no mass. Tenderness: There is abdominal tenderness in the epigastric area. There is no right CVA tenderness, left CVA tenderness, guarding or rebound. Negative signs include Arboleda's sign and McBurney's sign. Comments: Gestational with adequate size for her gestational age Musculoskeletal: General: No tenderness or deformity. Normal range of motion. Cervical back: Normal range of motion and neck supple. Right lower leg: No edema. Left lower leg: No edema. Lymphadenopathy: Cervical: No cervical adenopathy. Skin: General: Skin is warm and dry. Coloration: Skin is not pale. Findings: No erythema or rash. Neurological: Mental Status: She is alert and oriented to person, place, and time. Cranial Nerves: No cranial nerve deficit. Motor: No abnormal muscle tone. Coordination: Coordination normal. Deep Tendon Reflexes: Reflexes are normal and symmetric. Reflexes normal. Psychiatric: Behavior: Behavior normal. Behavior is cooperative. Thought Content: Thought content normal. Judgment: Judgment normal. Radiology: No orders to display Lab Results: Lab Results CBC WITH DIFF - Abnormal Result Value Ref Range WBC 9.91 4.30 - 11.10 10*3/?L RBC 3.43 (*) 3.93 - 5.25 10*6/?L HGB 10.1 (*) 11.6 - 15.0 g/dL HCT 30.6 (*) 35.7 - 45.2 % MCV 89.2 80.6 - 95.5 fL MCH 29.4 25.9 - 32.8 pg MCHC 33.0 31.6 - 35.1 g/dL RDW-SD 44.0 39.0 - 49.9 fL RDW-CV 13.5 12.0 - 15.5 % PLT 200 166 - 358 10*3/?L MPV 9.9 9.5 - 12.9 fL NRBC/100 WBC 0.0 0.0 - 10.0 /100 WBCs NRBC x10 3 <0.01 10*3/?L GRAN MAT (NEUT) % 86.3 % IMM GRAN % 1.40 % LYMPH % 3.8 % MONO % 7.9 % EOS % 0.4 % BASO % 0.2 % GRAN MAT x10 3 (ANC) 8.55 (*) 1.88 - 7.09 10*3/uL IMM GRAN x10 3 0.14 (*) 0.00 - 0.06 10*3/uL LYMPH x10 3 0.38 (*) 1.32 - 3.29 10*3/uL MONO x10 3 0.78 0.33 - 0.92 10*3/uL EOS x10 3 0.04 0.03 - 0.39 10*3/uL BASO x10 3 <0.03 0.01 - 0.07 10*3/uL RAPID STREP SCREEN FOR GROUP A - Normal Molecular Strep Negative Negative URINALYSIS COMP. METABOLIC PANEL (65936) INFLUENZA A/B RSV COVID NAAT THROAT CULTURE EKG: If EKG completed, see Procedure Note. Orders and Treatments: Orders Placed This Encounter Procedures Urinalysis Cbc with Diff Comp. Metabolic Panel (20391) Influenza A B RSV COVID NAAT Rapid Strep Screen For Group A Throat Culture Orders Placed This Encounter Medications acetaminophen (TYLENOL) tablet 975 mg NaCl 0.9% (NS) bolus infusion 1,000 mL dextromethorphan-guaifenesi n (ROBITUSSIN DM) 10-100 mg/5 mL solution 10 mL First Provider Eval: ED Events Date/Time Event User Comments 06/08/24 0630 Medical Screening Begins ROMI MD, FIFI -- 06/08/24 0630 First Provider Evaluation FIFI LLANOS MD -- ED COURSE Patient's condition stable, not in active labor, case signed ot to the AM Team, awaiting results of her labs, her re-evaluation and possible dispo to L&D for monitoring. Diagnosis/Impression as of 06/08/24 0736 Fever in adult Third trimester COVID-19 Procedures: Procedures MDM: Medical Decision Making Problems Addressed: Fever in adult: complicated acute illness or injury with systemic symptoms Third trimester : undiagnosed new problem with uncertain prognosis Amount and/or Complexity of Data Reviewed Labs: ordered. Discussion of management or test interpretation with external provider(s): Case discussed with Dr Barahona, who took over the case from mi Risk OTC drugs. Prescription drug management. Flowsheet Documentation: Scoring Tools: No data recorded Disposition/Condition: ED Disposition None Discharge Medications: Patient's Medications START taking these medications No medications on file CONTINUE taking these medications which have NOT CHANGED PNV 11-IRON FUM-FOLIC ACID-OM3 28 MG IRON-1 MG -200 MG CAP Take by mouth. START taking Modified Medications as Prescribed No medications on file STOP taking these medications No medications on file Follow-up: Electronically signed by: Fifi Llanos MD 06/08/24 0700 [facility] 2024-06-03 11:23:18 Attempted to contact patient. No answer, VM left. Tyron Khan RN 06/03/2024 11:23 AM Tyron Khan RN [facility] 2024-06-03 09:18:55 Received record from [facility] -05/20/2024: Hemoglobin 11.1, platelet 269, 3-hour GTT abnormal (187/220/184/177) -LMP 10/01/2023; JAIMEE 07/07/2024 -Ultrasound on 01/07/2024: 13 weeks and 3 days, JAIMEE 07/11/2024. - Final JAIMEE 07/07/2024 -05/03/2024: 1 hour 147, RPR nonreactive, HIV nonreactive -01/21/2024: Maternal serum AFP negative -12/23/2023: Hemoglobin 12.5, platelets 239, O+/IAT negative, rubella immune, hepatitis B surface antigen nonreactive, RPR nonreactive, HIV nonreactive, hepatitis C nonreactive, VZV immune, UDS negative, TSH within normal limits, 1 hour GTT 172 -12/25/2023: Pap negative with positive HPV (HPV 16/18 negative) -12/30/2023: Horizon 14/14 negative -Ultrasound on 03/03/2024: Placenta fundal anterior, 21 weeks and 1 day, JAIMEE 07/13/2024. No obvious abnormalities GDM -Patient needs diabetic teaching ROBBIE. Growth scan ordered. -Follow-up in 1 week for glucose log review Panorama results not in record. Will try to obtain. Trell Hagen MD 06/03/2024 9:28 AM T [facility] 2024-06-02 13:35:12 Medical records received from [facility] by fax. Placed on provider's desk for review and signature. [facility] 2024-05-31 14:45:00 Age: [age] year old GA: 34w5d Transfer care from [facility] -Record not available today. Release of records signed. -Patient states no complications this and up-to-date. Awaiting glucose result. -Reported JAIMEE 07/07/2024 Discussed elective induction at 39 wks versus awaiting spontaneous labor. Discussed the process of induction with includes cervical ripening, AROM, and pitocin with the patient and answered all questions. Discussed about risks of failed induction that can lead to and risks associated with including pain, bleeding, infection, injury to surrounding organs, need for repeat with future pregnancies, risks of abnormal placentation with future pregnancies. Patient understands and desires to proceed with induction. Patient has been scheduled for induction on 06/30/2024 at 39 weeks unless clinically indicated otherwise. No complaints. Discussed do's and don'ts of , safe foods, safe medications. Reviewed Zika virus precautions. I discussed the call schedule and that I might not be the physician delivering her. I discussed I deliver my patients at [facility]. Encouraged to call if have any additional questions or concerns. Discussed with patient that she can have HEALTHY support with her during her delivery (which is subject to change depends on the COVID pandemic) 3rd trimester teaching done- reviewed S/S of PTL (contractions, leakage of fluid and Vaginal bleeding) and also Kick Counts. Also dicussed [place], pelvic and lower back pains- expectations and differenced with S/S of PTL She plans to breast/bottle fed BC options reviewed- opted for condoms Air Pumper: Undecided Encourage patient to bring in wishes if she has any. Follow-up in 2 weeks for visit [facility] 2023-11-15 22:02:41 Pt seen by AGUEDA FANG performed. Pt advised to f/u with PCP/OBGYN as needed ENZO Black RN [facility] 2023-11-15 21:41:19 Pt arrives ambulatory to ED reporting that she took a test and wanted to have it confirmed here in the ED. LRY POLISHER [facility]
--- NOTE | 2025-02-05 20:05 | EDPHYS ---
Physician Documentation [facility] Name: Iliana Narayan Age: 24 yrs Sex: Female : 2000 Arrival Date: 02/05/2025 Time: 19:04 Bed 12 Private MD: ED Physician Memo Munguia HPI: 02/05 19:55 This 24 yrs old Female presents to ER via Ambulatory with complaints of Rash. cp 19:55 The patient's rash thought to be caused by an unknown cause. The rash is located on the cp right axilla. The rash can be described as erythematous, papular, pustular. Onset: The symptoms/episode began/occurred 1 week(s) ago. Associated signs and symptoms: Pertinent positives: Pain Pertinent negatives: fever, drainage. Severity of symptoms: in the emergency department the symptoms are unchanged despite home interventions. Treatment given at home: none. 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 - Infectious Disease History:: Denies. - Social history:: Smoking status: Reported history of juuling and/or vaping. Patient/guardian denies using alcohol, street drugs. ROS: 19:57 Constitutional: Negative for body aches, chills, fever, poor PO intake, cp 19:57 Respiratory: Negative for cough, shortness of breath, wheezing, 19:57 Abdomen/GI: Negative for abdominal pain, vomiting, diarrhea, constipation, 19:57 Skin: Positive for rash, of the right axilla, 19:57 All other systems are negative, Exam: 19:59 Head/Face: Normocephalic, atraumatic. cp 19:59 Constitutional: The patient appears in no acute distress, alert, awake, non-toxic, well developed, well nourished, overweight 19:59 Eyes: Periorbital structures: appear normal, Conjunctiva: normal, no exudate, no injection, Lids and lashes: appear normal, bilaterally, 19:59 Chest/axilla: Inspection: normal, Axilla: noted erythematous papules and pustules, no discharge expressed, mild tenderness to palpation, 19:59 Cardiovascular: Rate: normal, 19:59 Respiratory: the patient does not display signs of respiratory distress, Respirations: normal, no use of accessory muscles, no retractions, labored breathing, is not present, Breath sounds: are clear throughout, 19:59 Skin: abscess, not appreciated, Vital Signs: 19:17 BP 129 / 93; Pulse 79; Resp 18; Temp 97.5(TE); Pulse Ox 100% on R/A; Weight 77.11 kg; br2 Height 5 ft. 1 in. ; Pain 5/10; 19:17 Body Mass Index 32.12 (77.11 kg, 154.94 cm) br2 19:17 Pain Scale: Adult br2 MDM: 19:13 Medical Screening Exam initiated cp 20:00 Differential diagnosis: abscess, cellulitis, localized allergic reaction. cp 20:04 Data reviewed: vital signs, nurses notes, and as a result, I will discharge patient. cp 20:04 Counseling: I had a detailed discussion with the patient and/or guardian regarding the cp historical points, exam findings, and any diagnostic results supporting the discharge/admit diagnosis, to return to the emergency department if symptoms worsen or persist or if there are any questions or concerns that arise at home. Administered Medications: 19:43 CANCELLED (Physician Discretion): [id number] mg IV at calculated rate once cp 20:17 Drug: Bacitracin Topical Ointment (500 unit/g) 1 application Topical once Route: cp4 Topical; Site: affected area; 20:19 Follow up: Response: No adverse reaction cp4 20:18 Drug: Trimethoprim-Sulfamethoxazole PO (160 mg-800 mg (DS) 1 tablet PO once Route: PO; cp4 20:19 Follow up: Response: No adverse reaction cp4 Disposition: 02/06 02:08 Co-signature as Attending Physician, Memo Munguia MD I agree with the assessment and michael plan of care. 17:53 Chart complete. cp Disposition Summary: 02/05/25 20:04 Discharge Ordered Notes: Location: Home cp Problem: new cp Symptoms: have improved cp Condition: Stable cp Diagnosis - Local infection of the skin and subcutaneous tissue, unspecified - right axilla cp Followup: cp - With: Private Physician - When: 2 - 3 days - Reason: Worsening of condition Discharge Instructions: - Discharge Summary Sheet cp - Cellulitis, Adult cp Forms: - Medication Reconciliation Form cp - Antibiotic Education cp - Prescription Opioid Use cp - Patient Portal Instructions cp - Leadership Thank You Letter cp Prescriptions: - mupirocin 2 % Topical ointment - apply 1 application TOPICAL route 2-3 times daily; 30 gram tube; Refills: 0, cp Product Selection Permitted - Bactrim DS 800-160 mg Oral Tablet - take 1 tablet ORAL route every 12 hours for 10 days; 20 tablet; Refills: 0, cp Product Selection Permitted Signatures: Memo Munguia MD MD cha Page, Corey, PA PA Sabrina Kuo cp4 Leona Campos RN RN br2 Corrections: (The following items were deleted from the chart) 02/05 19:43 19:43 Keppra IV 1000 mg IV at calculated rate once ordered. cp cp
--- NOTE | 2025-02-05 20:05 | ER ---
Nurse's Notes [facility] Name: Iliana Narayan Age: 24 yrs Sex: Female : 2000 Arrival Date: 02/05/2025 Time: 19:04 Bed 12 Private MD: Diagnosis: Local infection of the skin and subcutaneous tissue, unspecified-right axilla Presentation: 02/05 19:17 Chief complaint: Patient states: RASH UNDER RT ARM PIT FOR 1 WEEK., BECAME WORSE LAST br2 NIGHT. Coronavirus screen: Client denies travel out of the [place] in the last 14 days. Ebola Screen: Patient denies exposure to infectious person. Initial Sepsis Screen: Does the patient meet any 2 criteria? No. Patient's initial sepsis screen is negative. Does the patient have a suspected source of infection? No. Patient's initial sepsis screen is negative. Risk Assessment: Do you want to hurt yourself or someone else? Patient reports no desire to harm self or others. Onset of symptoms was January 29, 2025. 19:17 Method Of Arrival: Ambulatory br2 19:17 Acuity: KARLOS 5 br2 Triage Assessment: 19:19 General: Appears in no apparent distress. comfortable, Behavior is calm, cooperative. br2 Pain: Complains of pain in right arm AXILLARY AREA. 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 - Infectious Disease History:: Denies. - Social history:: Smoking status: Reported history of juuling and/or vaping. Patient/guardian denies using alcohol, street drugs. Screenin:[facility] ED Fall Risk Assessment (Adult) History of falling in the last 3 months, cp4 including since admission No falls in past 3 months (0 pts) Confusion or Disorientation No (0 pts) Intoxicated or Sedated No (0 pts) Impaired Gait No (0 pts) Mobility Assist Device Used No (0 pt) Altered Elimination No (0 pt) Score/Fall Risk Level 0 - 2 = Low Risk Oriented to surroundings, Maintained a safe environment, Assessed \T\ reinforced patient's understanding of fall precautions, Hourly rounding (assess needs \T\ fall precautionary measures) done. Abuse screen: Denies threats or abuse. Denies injuries from another. Nutritional screening: No deficits noted. Tuberculosis screening: No symptoms or risk factors identified. Assessment: 19:21 General: Appears in no apparent distress. comfortable, Behavior is calm, cooperative, cp4 appropriate for age. Pain: Complains of pain in right axillary Pain does not radiate. Pain currently is 5 out of 10 on a pain scale. Neuro: Level of Consciousness is awake, alert, obeys commands, Oriented to person, place, time, situation. Cardiovascular: Patient's skin is warm and dry. Respiratory: Airway is patent Respiratory effort is even, unlabored. GI: No signs and/or symptoms were reported involving the gastrointestinal system. : No signs and/or symptoms were reported regarding the genitourinary system. EENT: No signs and/or symptoms were reported regarding the EENT system. Derm: Reports itching, pain that is 5 out of 10 on a pain scale. Musculoskeletal: No signs and/or symptoms reported regarding the musculoskeletal system. Vital Signs: 19:17 BP 129 / 93; Pulse 79; Resp 18; Temp 97.5(TE); Pulse Ox 100% on R/A; Weight 77.11 kg; br2 Height 5 ft. 1 in. ; Pain 5/10; 19:17 Body Mass Index 32.12 (77.11 kg, 154.94 cm) br2 19:17 Pain Scale: Adult br2 ED Course: 19:06 Patient arrived in ED. [id number] 19:13 Memo Robbins PA is PHCP. cp 19:13 Gulshan Knox MD is Attending Physician. cp 19:19 Triage completed. br2 19:19 Arm band placed on right wrist. br2 19:21 Sabrina Diaz is Primary Nurse. cp4 19:21 Bed in low position. Call light in reach. Side rails up X 1. cp4 19:21 No provider procedures requiring assistance completed. Patient did not have IV access cp4 during this emergency room visit. 19:26 Memo Munguia MD is Attending Physician. cp 20:18 Provided Education on: cellulitis. cp4 Administered Medications: 19:43 CANCELLED (Physician Discretion): [id number] mg IV at calculated rate once cp 20:17 Drug: Bacitracin Topical Ointment (500 unit/g) 1 application Topical once Route: cp4 Topical; Site: affected area; 20:19 Follow up: Response: No adverse reaction cp4 20:18 Drug: Trimethoprim-Sulfamethoxazole PO (160 mg-800 mg (DS) 1 tablet PO once Route: PO; cp4 20:19 Follow up: Response: No adverse reaction cp4 Medication: 19:21 VIS not applicable for this client. cp4 Outcome: 20:04 Discharge ordered by MD. cp 20:18 Discharged to home ambulatory, cp4 20:18 Condition: stable 20:18 Discharge instructions given to patient, family, Instructed on discharge instructions, follow up and referral plans. medication usage, Demonstrated understanding of instructions, follow-up care, medications, Prescriptions given X 2, 20:19 Patient left the ED. cp4 Signatures: Memo Robbins PA PA Michelle Rodriguez Christina cp4 Leoan Campos RN RN br2
[2025-02-05] MEDS ORDERED: SMZ./TMP. 800/160 MG TABLET ONE (20:14)
[2025-02-05] MEDS ORDERED: MUPIROCIN 2% OINT 22GM TUBE TOP ONE (20:15)
[2025-02-05 20:25] VITALS: BP 129/93; TEMP 97.5; O2SAT 100
== END 2025-02-05 20:19 | disposition home or self-care (01) ==
LOC: ER 19:04
DX: L08.9 Local infection of the skin and subcutaneous tissue, unspecified (principal)
CPT/HCPCS: 99283